=== PATIENT | male | born 1985 | race Caucasian/White ===

== ENCOUNTER 2021-11-03 10:21 | Emergency (ER) | payer OTHER, SELFPAY ==
[2021-11-03 10:23] VITALS: BP 123/79; PULSE 79; RESP 18; TEMP 36.8; O2SAT 99; BMI 20.9
--- NOTE | 2021-11-03 10:46 | ED_ITS ---
HPI - Back Pain/Injury General Chief Complaint: Back Pain/Injury Stated Complaint: check up/back pain Time Seen by Provider: 11/03/21 10:29 History of Present Illness HPI Narrative: Patient complains of low back pain after lifting at work, he did injure his back at work about 2 weeks ago was off for several days went back on light duty with no problem but then when he had to return to heavy lifting on his regular job the pain came back after lifting at work There is no numbness no weakness no tingling no radiation of pain no changes to bowel or bladder Related Data Previous Rx's Medication Instructions Recorded acetaminophen 500 mg tablet 1,000 mg PO QID PRN pain #30 tabs 11/03/21 ibuprofen 600 mg tablet 600 mg PO Q6H PRN pain #20 tabs 11/03/21 Allergies Allergy/AdvReac Type Severity Reaction Status Date / Time Penicillins [PENICILLINS] Allergy Intermediate HIVES Unverified 11/19/19 15:44 penicillin V Allergy Unknown rash Verified 12/04/16 00:00 Review of Systems Review of Systems: Positive for back pain negatives are no fever no chills no dizziness or weakness no headache no neck pain no chest pain no shortness of breath no abdominal pain no nausea or vomiting no changes to bowel or bladder no dysuria no frequency no incontinence, no skin rash, no muscle weakness or loss of sensation Yes all other systems are reviewed and are negative [facility] Past Medical History Source: nursing notes reviewed Social History Social History Advance Directives: No Physical Exam Vital Signs: Vital Signs: Last Vital Signs Temp 98.3 F 11/03/21 10:23 Pulse 79 11/03/21 10:23 Resp 18 11/03/21 10:23 BP 123/79 11/03/21 10:23 Pulse Ox 99 11/03/21 10:23 O2 Del Method 11/03/21 10:23 BMI result Body Mass Index 20.9 General appearance is comfortable no acute distress Head is normocephalic atraumatic Neck is supple Respiratory no distress The back had lower lumbar soft-tissue tenderness, no focal bony tenderness, skin was normal, pain reproduced with bending and movement, no CVA tenderness Extremities full range of motion x4 Neuro gait and balance are normal, motor is 5/5 x4, sensation intact and symmetrical Course Course Course Narrative: Patient with musculoskeletal back pain from lifting at work with no neurologic deficit no changes to bowel or bladder will follow with [facility] or what ever workman's comp provider his company wants Discharge Plan Discharge Clinical Impression: Strain of lumbar region Patient Disposition: Home, Self-Care Additional Instructions: Follow with [facility], or wherever your company send you for workman's Comp injuries for further evaluation Return any time for any worse condition or concerns Prescriptions: New acetaminophen 500 mg tablet 1,000 mg PO QID PRN (Reason: pain) Qty: 30 0RF ibuprofen 600 mg tablet 600 mg PO Q6H PRN (Reason: pain) Qty: 20 0RF Referrals: [facility] [Provider Group] (Back strain at work) Stand Alone Forms: Work/School Release
== END 2021-11-03 11:11 | disposition home or self-care (01) ==
PROVIDERS: Emergency Provider Emergency Medicine
DX: S39.012A Strain of muscle, fascia and tendon of lower back, initial encounter (principal); X50.0XXA Overexertion from strenuous movement or load, initial encounter; X50.3XXA Overexertion from repetitive movements, initial encounter; Y93.9 Activity, unspecified; Y92.9 Unspecified place or not applicable; Y99.0 Civilian activity done for income or pay; Z79.899 Other long term (current) drug therapy
CPT/HCPCS: 99283

== ENCOUNTER 2022-03-07 08:05 | Emergency (ER) | payer OTHER, SELFPAY ==
--- NOTE | ~2022-03-07 | CT_ITS ---
EXAMINATION: CT FACIAL BONES WITH CONTRAST CLINICAL INFORMATION: Trauma. Hit with baseball left jaw. COMPARISON: None TECHNIQUE: Multidetector CT imaging examination of the face is performed with intravenous administration of 85 mL Omnipaque 350. Axial images and multiplanar reformatted images are reviewed. This CT examination was performed using dose optimization techniques as appropriate, variously including the following: *Automated exposure control *Adjustment of mA and/or kV according to patient size (this includes techniques or standardized protocols for targeted exams where dose is matched to indication/reason for exam; i.e. extremities or head) *Use of iterative reconstruction technique DLP: 263 mGy-cm FINDINGS: The globes and orbital suarez, including lamina papyracea, are intact. The orbital apex, optic canals, and retrobulbar fat planes are normal. The maxilla, mandible and temporomandibular joints are intact. Nasal bones, pterygoid plates and zygomatic arches are normal. Mild mucosal thickening of maxillary sinuses (left more so than right). Otherwise, the paranasal sinuses are well-aerated and the ostiomeatal units are patent. No air-fluid levels in the paranasal sinuses. The skull base is normal. The mastoid air cells are well aerated. The visualized intracranial structures are normal. Parotid glands and submandibular glands are normal. There is subcutaneous tissue edema in the left perimandibular region and patchy hyperdensity in the soft tissue anterolateral to the body of left mandible has the appearance of an acute hematoma; this measures approximately 1.7 x 2[address]/CT facial bones w IV con IMPRESSION: * No evidence of maxillofacial bone injury. * Soft tissue hematoma anterolateral to the body of the left mandible.
[2022-03-07 08:10] VITALS: BP 131/67; PULSE 78; RESP 18; TEMP 36.9; O2SAT 99; BMI 20.3
--- NOTE | 2022-03-07 08:44 | ED_ITS ---
HPI - Trauma General Chief Complaint: Skin/Abscess/Foreign Body Stated Complaint: Dental Pain Time Seen by Provider: 03/07/22 08:28 Source: patient Mode of arrival: ambulatory Limitations: no limitations History of Present Illness HPI narrative: 36-year-old male who presents emergency department for evaluation facial trauma with swelling of his left lower mandible. 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 He states that he was pitching and standing behind and L screen . The ball was hit by a player and ball struck the bottom rales of the L screen up and struck him mandible. Patient states he developed immediate pain. States that he also either bit his left inner cheek the ball caused a laceration to his inner cheek. He had no loss consciousness. He states that initially the pain was getting better but now he has noticed increased swelling and increased pain. He is concerned that he may have an infection to his mouth/lower jaw or fracture of his mandible. He denied fever, chills fatigue or weakness. Related Data Previous Rx's Medication Instructions Recorded acetaminophen 500 mg tablet 1,000 mg PO QID PRN pain #30 tabs 11/03/21 ibuprofen 600 mg tablet 600 mg PO Q6H PRN pain #20 tabs 11/03/21 Allergies Allergy/AdvReac Type Severity Reaction Status Date / Time Penicillins [PENICILLINS] Allergy Intermediate HIVES Unverified 11/19/19 15:44 penicillin V Allergy Unknown rash Verified 12/04/16 00:00 Review of Systems Review of Systems: Yes all other systems are reviewed and are negative [facility] Past Medical History [facility] Narrative: Past medical history: None. Past surgical history: None. Social history: He denies tobacco, alcohol and drug use. Social History Social History Advance Directives: No Advance Directives Information Provided: No Physical Exam Vital Signs: Vital Signs: Last Vital Signs Temp 98.4 F 03/07/22 08:10 Pulse 78 03/07/22 08:10 Resp 18 03/07/22 08:10 BP 131/67 03/07/22 08:10 Pulse Ox 99 03/07/22 08:10 O2 Del Method 03/07/22 08:10 BMI result Body Mass Index 20.3 Vital signs reviewed Const: Other: Awake, alert, male patient, very pleasant cooperative does not appear to be in distress HEENT: Other: The patient's head is normal cephalic. Pupils were equal round reactive light, extraocular muscles intact with no double vision, there is no ecchymosis tenderness or swelling over the orbits or zygomatic arch. The patient's left lower mandible is ecchymotic, there is a tender palpable mass over the body/ mental aspect of his jaw. The patient a linear, healing laceration to the left buccal mucosa with no purulent drainage , the patient's teeth appear to be normal with no tenderness or soft tissue swelling of the gingiva Neck: Other: Neck is supple, no adenopathy Neuro: Other: Patient is awake, alert, oriented to person place, cranial nerves 2 through 12 are intact, strength is symmetric Medications Administered Discontinued Medications Generic Name Dose Route Start Last Admin Trade Name Freq PRN Reason Stop Dose Admin Iohexol 85 ml 03/07/22 10:04 03/07/22 10:04 Iohexol 350 Mg/Ml 100 Ml Infus..Btl IV 03/07/22 10:05 85 ml ONCE ONE Administration Medical Decision Making Medical Decision Making [facility] Narrative: 36-year-old male who presents emergency department for evaluation facial trauma that occurred 6 days prior pain. 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 The ball struck patient in the left mandible. The patient states that his pain was improving but now got worsened there is a small mass at the margin body and mental area of the mandible. Patient also has a linear laceration which is healing on the left buccal mucosa. I will obtain a laboratory evaluation CBC and CMP. I ordered a CT patient's face with IV contrast evaluate possible fracture versus infectious/abscess 1148: Laboratory evaluation revealed normal CBC and CMP which is reassuring. CT scan of the patient's face and mandible revealed no acute fractures. There was no evidence for an abscess or infectious process. Patient does have a hematoma which explains the palpable mass. I did discuss this with the patient. This time I do not patient has an infectious process and does require antibiotics. Patient was advised to take and pain and ice that area of hematoma. He was advised to watch for signs infection and return if he thinks the scalp infection or symptoms get worse. Differential Diagnosis Differential includes was not limited to mandible fracture, cellulitis, abscess, hematoma Lab Data [facility] Lab Attestation statement: I reviewed the patient's lab results. Please see the MDM Section laboratory interpretation Result Diagrams: 03/07/22 09:12 03/07/22 09:12 Labs: Lab Results 03/07/22 03/07/22 Range/Units 09:12 09:12 WBC 5.5 (4.8-10.8) X10*3/uL RBC 3.89 L (4.60-5.80) X10*6/uL Hgb 11.5 L (14.0-18.0) g/dl Hct 33.3 L (42.0-52.0) % MCV 85.6 (80.0-98.0) fL MCH 29.6 (27.0-33.0) pg MCHC 34.5 (31.0-36.0) g/dl RDW 11.8 (11.0-16.0) % Plt Count 182 (160-400) X10*3/uL MPV 9.0 L (9.4-12.4) fL Immature Gran % (Auto) 0.2 (0.0-0.4) % Neut % (Auto) 47.1 (45-73) % Lymph % (Auto) 35.0 (20-40) % Rains % (Auto) 11.4 H (2-11) % Eos % (Auto) 5.4 H (0-4) % Baso % (Auto) 0.9 (0-2) % Lymph # (Auto) 1.9 (1.2-4.9) X10*3/uL Rains # (Auto) 0.6 (0.1-1.2) X10*3/uL Eos # (Auto) 0.3 (0.0-0.4) X10*3/uL Baso # (Auto) 0.1 (0.0-0.2) X10*3/uL Abs Immat Gran (auto) 0.01 (0.00-0.03) X10*3/uL Absolute Neuts (auto) 2.6 (2.0-8.3) x10*3/uL Absolute Nucleated RBC 0.000 (0.0-0.012) X10*3/uL Nucleated RBC % (auto) 0.0 (0.0-0.2) /100WBC Sodium 140 (135-145) mmol/L Potassium 3.4 (3.3-5.1) mmol/L Chloride 107 (96-108) mmol/L Carbon Dioxide 29 (22-29) mmol/L Anion Gap 7 L (12-20) BUN 11 (9-16) mg/dL Creatinine 0.78 (0.5-1.4) mg/dL Estim Creat Clear Calc 128.4 Estimated GFR > 60 Random Glucose 83 (60-115) mg/dL Calcium 9.0 (8.4-10.2) mg/dL Total Bilirubin 0.5 (0.0-1.0) mg/dL AST 17 (5-37) U/L ALT 7 (0-40) U/L Alkaline Phosphatase 97 (39-117) U/L Total Protein 6.3 L (6.5-8.0) g/dL Albumin 4.0 (3.5-5.0) g/dL Independent Interpretation I performed an independent interpretation of an: CT Scan (Face and mandible) Interpretation: Being dependent irritation of the patient's CT face and mandible revealed no acute fracture, hematoma with no evidence inflammatory changes and I agree with the radiologist's interpretation Radiology Impression Discussion of test interpretation with radiology: I have reviewed the radiologist's reading. Radiologist Impression: IMPRESSION: * No evidence of maxillofacial bone injury. * Soft tissue hematoma anterolateral to the body of the left mandible. Dictated By:Singh Mantillaigned By:<Electronically signed by Singh Mantilla MD in [place]>03/07/22 1142 Prescription Management I considered prescription management with: Antibiotic Discharge Plan Discharge Clinical Impression: Hematoma Blunt trauma of face Qualifiers: Encounter type: initial encounter Qualified Code(s): S09.93XA - Unspecified injury of face, initial encounter Patient Disposition: Home, Self-Care Instructions: Bone Bruise (ED), Hematoma (ED) Additional Instructions: Your blood work was normal which is reassuring. The CT scan of your face and mandible revealed no broken bones. You do have a hematoma (collection of blood in the muscle) of your jaw and this explains the lump that you noted. At this time I do not think that you have an infection of your teeth, gums or jaw and you do not need any antibiotics. If you developed fever, chills, fatigue, weakness, redness, increased swelling increased pain in your jaw or cheek then [facility] Follow-up with your doctor in 2 days. Please return to the emergency department if your symptoms get worse or if you develop any symptoms that are concerning to you. Prescriptions: No Action acetaminophen 500 mg tablet 1,000 mg PO QID PRN (Reason: pain) Qty: 30 0RF ibuprofen 600 mg tablet 600 mg PO Q6H PRN (Reason: pain) Qty: 20 0RF
[2022-03-07 09:15] LABS: MANUAL DIFF FLAG NO
[2022-03-07 09:18] LABS: Basophils Absolute Auto 0.1 X10*3/uL (0.0-0.2); Basophils Percent Auto 0.9 % (0-2); Eosinophils Absolute Auto 0.3 X10*3/uL (0.0-0.4); Eosinophils Percent Auto 5.4 % (0-4); Hematocrit 33.3 % (42.0-52.0); Hemoglobin 11.5 g/dl (14.0-18.0); Imm Gran Abs Auto 0.01 X10*3/uL (0.00-0.03); Imm Gran Pct Auto 0.2 % (0.0-0.4); Lymphocytes Absolute Auto 1.9 X10*3/uL (1.2-4.9); Mean Corpuscular HGB Conc 34.5 g/dl (31.0-36.0); Mean Corpuscular Hemoglobin 29.6 pg (27.0-33.0); Mean Corpuscular Volume 85.6 fL (80.0-98.0); Monocytes Absolute Auto 0.6 X10*3/uL (0.1-1.2); Monocytes Percent Auto 11.4 % (2-11); Neutrophils Absolute Auto 2.6 x10*3/uL (2.0-8.3); Neutrophils Percent Auto 47.1 % (45-73); Platelet Count 182 X10*3/uL (160-400); Red Blood Count 3.89 X10*6/uL (4.60-5.80); Red Cell Distribution Width 11.8 % (11.0-16.0); White Blood Count 5.5 X10*3/uL (4.8-10.8)
[2022-03-07 09:36] LABS: Alanine Aminotransferase 7 U/L (0-40); Alkaline Phosphatase 97 U/L (39-117); Anion Gap 7 (12-20); Aspartate Amino Transferase 17 U/L (5-37); Bilirubin Total 0.5 mg/dL (0.0-1.0); Blood Urea Nitrogen 11 mg/dL (9-16); Carbon Dioxide 29 mmol/L (22-29); Chloride 107 mmol/L (96-108); Creatinine Clr Calc Pharmacy 128.4; Estimated Glomerular Filt Rate > 60; Glucose Random 83 mg/dL (60-115); Potassium 3.4 mmol/L (3.3-5.1); Sodium 140 mmol/L (135-145); Total Protein 6.3 g/dL (6.5-8.0)
[2022-03-07] MEDS: iohexoL 350 MG/ML 100 ML INFUS..BTL 85 ML IV (10:04)
== END 2022-03-07 12:53 | disposition home or self-care (01) ==
PROVIDERS: Emergency Provider Emergency Medicine Emergency Medical Services
DX: S09.93XA Unspecified injury of face, initial encounter (principal); S01.512A Laceration without foreign body of oral cavity, initial encounter; W21.03XA Struck by baseball, initial encounter; Y93.67 Activity, basketball; Y92.320 Baseball field as the place of occurrence of the external cause; Y99.8 Other external cause status
CPT/HCPCS: 36415; 70487; 80053; 85025; 99282; 99284; Q9967

== ENCOUNTER 2023-05-24 09:19 | Emergency (ER) | payer OTHER, SELFPAY ==
--- NOTE | ~2023-05-24 | XR_ITS ---
EXAMINATION: XR FINGER, LEFT CLINICAL INFORMATION: Pain status post laceration. COMPARISON: None available. TECHNIQUE: Three views of the left index finger. FINDINGS: Examination demonstrates amputation of the distal/dorsal/lateral (radial) aspect of the soft tissues and tuft of the left second distal phalanx. The distal end of the second distal phalanx may be exposed, although evaluation is somewhat limited due to overlying bandage. No obvious subcutaneous air is seen, although evaluation for subcutaneous air is similarly limited. The bones and soft tissues otherwise appear unremarkable. No other fracture identified. Alignment is anatomic. Joint spaces appear maintained. XR/XR finger LT min 2V IMPRESSION: Findings as above.
[2023-05-24 09:41] VITALS: BP 109/66; PULSE 64; RESP 18; TEMP 36.6; O2SAT 100; BMI 20.8
--- NOTE | 2023-05-24 11:00 | PC.NURSE ---
pt is alert and oriented, skin pwd, respirations even and unlabored, pt reports being at work and cutting metal with a saw, and the saw got stuck on the object and ended going through his left second finger, the external lateral side of the finger is missing and visible arterial bleeding, having a difficult part controlling the bleeding at this time, dr romeo at bedside putting in sutures to control the bleeding. pt tolerating the procedure well
[2023-05-24] MEDS: Acetaminophen 325 MG TABLET 975 MG PO (11:40)
[2023-05-24 11:42] VITALS: BP 113/78; PULSE 60; RESP 18
[2023-05-24] MEDS: Tranexamic Acid 1,000 MG/10 ML VIAL 500 MG INTRANASAL (11:42)
[2023-05-24] MEDS: Lidocaine HCl 1 % MPF 5 ML VIAL INFILTRATI (11:42)
--- NOTE | 2023-05-24 12:29 | ED.EXTPRO ---
HPI - Extremity Problem General Chief complaint: Extremity Injury, Upper Stated complaint: Finger Lac Work Injury 05/24/23 Time Seen by Provider: 05/24/23 10:08 Source: patient and RN notes reviewed Mode of arrival: ambulatory Limitations: no limitations History of Present Illness HPI Narrative: This is a 37-year-old male presenting to the emergency department with complaints of left 2nd finger pain status post laceration which occurred at work today. Patient states that while he was using a band saw he accidentally lacerated the tip of his left 2nd finger off. He states that he apply direct pressure and was able to get the bleeding to stop. He reports that the pain is manageable at this time. He has not on blood thinners. No medical problems. He does report that he is currently on Suboxone. He denies any recent missed dosages. No complaints or concerns at this time MD Complaint: extremity pain Onset (ago): hour(s) Pain Consistency: constant Location: left and upper extremity Severity scale (1-10): 10 Radiation: none Relieving factors: nothing Exacerbating factors: nothing Associated symptoms: denies other symptoms Related Data Previous Rx's Medication Instructions Recorded acetaminophen 500 mg tablet 1,000 mg (2 x 500 mg) PO QID PRN 11/03/21 pain #30 tabs ibuprofen 600 mg tablet 600 mg PO Q6H PRN pain #20 tabs 11/03/21 acetaminophen 500 mg tablet 1,000 mg (2 x 500 mg) PO Q6H PRN 05/24/23 (Tylenol Extra Strength) pain #30 tabs cephalexin 250 mg capsule 250 mg PO QID 7 days #28 caps 05/24/23 doxycycline hyclate 100 mg tablet 100 mg PO BID 7 days #13 tabs 05/24/23 ibuprofen 600 mg tablet 600 mg PO Q6H PRN pain #30 tabs 05/24/23 oxycodone 5 mg tablet 5 - 10 mg (1 - 2 x 5 mg) PO Q4H 3 05/24/23 days #10 tabs buprenorphine 64 mg/0.18 mL 64 mg (0.18 mL) subcut Q28D #0.18 05/27/23 solution,exten.rel.subcutaneous mL syringe buprenorphine 4 mg-naloxone 1 mg 1 film buccal BID #30 ea 05/29/23 sublingual film ibuprofen 600 mg tablet 600 mg PO Q6-8H PRN pain #40 tabs 05/30/23 Allergies Allergy/AdvReac Type Severity Reaction Status Date / Time Penicillins [PENICILLINS] Allergy Intermediate HIVES Verified 05/29/23 14:02 penicillin V Allergy Unknown rash Verified 05/29/23 14:02 Review of Systems Review of Systems: Yes all other systems are reviewed and are negative Constitutional: Constitutional: Reports as per [facility] Social History Social History (Updated 05/29/23 @ 14:04 by Omega Andrea) Alcohol intake: never Patient Tobacco Use Status: Never used Tobacco Use of substances other than those prescribed or required for medical reasons: Yes Substance Use Type Other:: suboxone. 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 Physical Exam Vital Signs: Vital Signs: Last Vital Signs Temp 98.3 F 05/24/23 15:04 Pulse 61 05/24/23 15:04 Resp 15 05/24/23 15:04 BP 108/65 05/24/23 15:04 Pulse Ox 99 05/24/23 15:04 O2 Del Method Room Air 05/24/23 15:04 BMI result Body Mass Index 20.8 Const: General: cooperative, comfortable and no acute distress Orientation/consciousness: patient oriented x3 Limitations: no limitations HEENT: Head: Yes normal to inspection, Yes normocephalic and Yes atraumatic Ears: hearing grossly normal bilaterally General nose exam: Normal external nose present Face and sinus: Yes normal facial exam Mouth: Normal oral and palatal mucosa present, oropharynx normal and moist mucous membranes Throat: Yes posterior oropharynx normal Eyes: General: appearance normal, both eyes and all related structures Eyelids: Yes eyelids normal Conjunctivae: conjunctivae normal Sclerae: sclerae normal Pupils: Equal, round and reactive pupils present EOM: EOMs intact bilaterally Neck: Neck: Yes normal visual inspection, Yes full ROM and Yes no lymphadenopathy Lymphatic: no lymphadenopathy noted Chest: Chest palpation & inspection: normal inspection of the chest Resp: Effort & Inspection: normal respiratory effort and able to speak in complete sentences Auscultation: clear to auscultation bilaterally, no crackles, no rales, no rhonchi and no wheezes Cardio: Rate: regular rate Rhythm: regular rhythm Heart sounds: S1 normal heart sound present and S2 normal heart sound present GI: Inspection: Yes normal to inspection Skin: General skin exam: no rashes or lesions noted Trauma: no lacerations or abrasions Wounds: no wounds Neuro: General: patient oriented x3 and moves all extremities Cranial nerves: Yes Equal, round and reactive pupils present Extrem: Other: Left 2nd digit: DIP with Dorsal tissue exposure active bleeding +arteriole bleeding. able to palpate the distal tip of digit. General: Yes normal to inspection Right upper extremity: normal to inspection Left upper extremity: normal to inspection Right lower extremity: normal to inspection Left lower extremity: normal to inspection Medications Administered Discontinued Medications Generic Name Dose Route Start Last Admin Trade Name Freq PRN Reason Stop Dose Admin Acetaminophen 975 mg 05/24/23 11:29 05/24/23 11:40 Acetaminophen 325 Mg Tablet PO 05/24/23 11:30 975 mg ONCE ONE Administration Cephalexin HCl 250 mg 05/24/23 13:38 05/24/23 14:04 Cephalexin 250 Mg Capsule PO 05/24/23 13:39 250 mg ONCE ONE Administration Doxycycline Monohydrate 100 mg 05/24/23 13:38 05/24/23 14:04 Doxycycline Monohydrate 100 Mg Capsule PO 05/24/23 13:39 100 mg ONCE ONE Administration Ibuprofen 600 mg 05/24/23 13:18 05/24/23 13:25 Ibuprofen 600 Mg Tablet PO 05/24/23 13:19 600 mg ONCE ONE Administration Lidocaine HCl 5 ml 05/24/23 10:57 05/24/23 11:42 Lidocaine Hcl 1 % Mpf 5 Ml Vial INFILTRATI 05/24/23 10:58 5 ml ONCE ONE Administration Oxycodone HCl 10 mg 05/24/23 13:16 05/24/23 13:24 Oxycodone Hcl Immed Release 5 Mg Tablet PO 05/24/23 13:17 10 mg ONCE ONE Administration Tranexamic Acid 500 mg 05/24/23 10:47 05/24/23 11:42 Tranexamic Acid 1,000 Mg/10 Ml Vial INTRANASAL 05/24/23 10:48 500 mg ONCE ONE Administration Medical Decision Making Medical Decision Making MDM Narrative: This is a 37-year-old male presenting to the emergency department with complaints of laceration to left 2nd digit. On arrival, there is notable absent tissue to the distal end his 2nd finger. Positive arterial bleeding. Patient was seen and evaluated by my attending physician, Dr. Gomez, who cleansed the wound and tied 3 sutures to arterial bleeds. See procedure note for further detail. Hemastasis was achieved using surgicel and TXA. Wound wrapped using gauze. Pt advised to call orthopedic office today for follow up. Discharged on ABX, given strict return precautions. Stable for D/C. Of note, pt has been on suboxone, which he was previously prescribed went onto Sublocade, was doing well however started to have withdrawal symptoms and was started back on suboxone he purchased from the street. He has had no illicit drug use and has not relapsed. He has been taking suboxone every day for several months now, last dose this morning. I discussed this with Yanni Aragon from the recovery team as given presentation he will be in pain for some time and will likely need something stronger for pain for the next several days. Pt wishes to be enrolled into recovery services again. Yanni saw patient at bedside. Discussed risks vs benefits of starting narcotic pain medications for the next several days. Pt centered care discussion performed and pt will be seen by recovery services on saturday. Pt agrees with this plan. Educated on if patient continues taking suboxone with oxycodone he will not go into precipitated withdrawal. Differential Diagnosis Differential Diagnoses: The differential diagnosis associated with the presentation includes laceration, amputation, contusion, abrasion Admission/Observation Consideration of admission/observation: Escalation of care including admission/observation considered Consult Healthcare Provider Management of the patient was discussed with: Behavioral Health Case Manager MIRI Hernandez, recovery team services Radiology Impression Discussion of test interpretation with radiology: I have reviewed the radiologist's reading. Radiologist Impression: Attending Dr: Ordering Physician: Ryanne Liu Date of Service: 05/24/23 Procedure(s): XR finger LT min 2V Accession Number(s): [id number] cc: Ryanne Liu; Physician,Unknown ~ EXAMINATION: XR FINGER, LEFT CLINICAL INFORMATION: Pain status post laceration. COMPARISON: None available. TECHNIQUE: Three views of the left index finger. FINDINGS: Examination demonstrates amputation of the distal/dorsal/lateral (radial) aspect of the soft tissues and tuft of the left second distal phalanx. The distal end of the second distal phalanx may be exposed, although evaluation is somewhat limited due to overlying bandage. No obvious subcutaneous air is seen, although evaluation for subcutaneous air is similarly limited. The bones and soft tissues otherwise appear unremarkable. No other fracture identified. Alignment is anatomic. Joint spaces appear maintained. XR/XR finger LT min 2V IMPRESSION: Findings as above. Dictated By: Jose Luis Luis External Record Review External record reviewed: Inpatient record, Office record, Outpatient record, Prior outpatient labs, Prior outpatient radiology, Primary care record and Outside ED record Procedures Procedure Narrative Procedure Narrative: Wound cleansed using Betadine. Finger tourniquet applied. Digital block performed using 4 cc of lidocaine without epinephrine. Dr. Gomez tied off arterial bleeds noted to the distal tip using 4-0 nylon sutures. Hemostat and TXA applied to with pressure. Hemostasis achieved. Patient tolerated procedure well Nerve Block Nerve Block 1: Time out performed: Yes Local Anesthetic: lidocaine 1% Amount of anesthesia used (mL): 4 Side: left Nerve Blocks: digital Procedure Successful: Yes Patient Tolerated Procedure: well and no complications Critical Care Time Critical Care Time Critical Care Time: Yes Total Critical Care Time: 40 Attestation: I have personally provided critical care time exclusive of time spent on separately billable procedures. Time includes review of lab data, radiology results, discussion with consultants, and monitoring for potential decompensation. Intervention performed as documented. Discharge Plan Discharge Clinical Impression: Finger amputation, traumatic, Finger laceration Patient Disposition: Home, Self-Care Instructions: Laceration (ED), Finger Amputation (ED) Additional Instructions: You were seen in the emergency department due to lacerating your finger. You accidentally cut the tip of your finger off which included some bone. You need to follow-up with Orthopedics. Call today to make an appointment. Keep wound clean and dry. Take prescribed antibiotics as directed. Finish the entire course. We updated your tetanus in the department today. Continue taking your Suboxone. I am also prescribing you ibuprofen and Tylenol which you can alternate between the 2. I am also giving your stronger pain medication, oxycodone, please take this for severe pain only. It is very important that you continue the Suboxone dosage. Do not miss any dosages. [facility] on Saturday, May 26, at 9:00 a.m. If any new or worsening symptoms occur including but not limited to chest pain, shortness of breath, fevers, chills, drainage, please return for re-evaluation. Prescriptions: New acetaminophen [Tylenol Extra Strength] 500 mg tablet 1,000 mg PO Q6H PRN (Reason: pain) Qty: 30 0RF Rx Instructions: Do not exceed greater than 4 g in a 24 hour. ibuprofen 600 mg tablet 600 mg PO Q6H PRN (Reason: pain) Qty: 30 0RF oxycodone 5 mg tablet 5 - 10 mg PO Q4H 3 Days Qty: 10 0RF Rx Instructions: Partial Fill upon patient request. doxycycline hyclate 100 mg tablet 100 mg PO BID 7 Days Qty: 13 0RF cephalexin 250 mg capsule 250 mg PO QID 7 Days Qty: 28 0RF No Action acetaminophen 500 mg tablet 1,000 mg PO QID PRN (Reason: pain) Qty: 30 0RF ibuprofen 600 mg tablet 600 mg PO Q6H PRN (Reason: pain) Qty: 20 0RF ibuprofen 600 mg tablet 600 mg PO Q6-8H PRN (Reason: pain) Qty: 40 0RF buprenorphine 64 mg/0.18 mL solution, extended rel syringe 64 mg subcut Q28D Qty: 0.18 5RF buprenorphine-naloxone 4-1 mg film 1 film buccal BID Qty: 30 0RF Rx Instructions: place 1 strip/tab under (each) side of tongue Referrals: [facility] [place] [facility] [Provider Group] Blanca Ayala CNP [Nurse Practitioner] - Stand Alone Forms: Work/School Release Interventions: ED Discharge Assessment Last Done: 05/24/23 15:04 Discharge Date/Time: 05/24/23 15:05
[2023-05-24] MEDS: oxyCODONE HCl Immed Release 5 MG TABLET 10 MG PO (13:24)
[2023-05-24] MEDS: Ibuprofen 600 MG TABLET PO (13:25)
[2023-05-24] MEDS: cephALEXin 250 MG CAPSULE PO (14:04)
[2023-05-24] MEDS: Doxycycline Monohydrate 100 MG CAPSULE PO (14:04)
[2023-05-24 14:17] VITALS: BP 108/65; PULSE 61; RESP 15; TEMP 36.8; O2SAT 99
--- NOTE | 2023-05-24 14:20 | MHC.RECOVRN ---
Met with pt in [facility] to discuss Suboxone continuation. Pt reports he had been on Suboxone in the past x 8 years, transitioned to Sublocade, received 4 injections and then discontinued the medication a few years ago. Pt has been purchasing illicit Suboxone x 1 year, taking 4 mg BID. Pt reports desire to connect to outpatient provider with goal of Sublocade. Discussed [facility], pt agreeable to intake appt. Pt denies other questions or concerns for t/w. Appt made for Saturday05/27/23 9:30AM.
[2023-05-24 15:04] VITALS: BP 108/65; PULSE 61; RESP 15; TEMP 36.8; O2SAT 99
== END 2023-05-24 15:05 | disposition home or self-care (01) ==
PROVIDERS: Emergency Provider Emergency Medicine
DX: S68.121A Partial traumatic metacarpophalangeal amputation of left index finger, initial encounter (principal); F11.20 Opioid dependence, uncomplicated; W31.2XXA Contact with powered woodworking and forming machines, initial encounter; Y93.9 Activity, unspecified; Y92.9 Unspecified place or not applicable; Y99.9 Unspecified external cause status
CPT/HCPCS: 35207; 73140; 99284

== ENCOUNTER 2023-05-27 09:27 | Outpatient (AMB) | payer SELFPAY ==
--- NOTE | 2023-05-27 09:29 | MHC.AM.SUB ---
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 Required: No Allergies Penicillins [PENICILLINS] Allergy (Intermediate, Unverified 05/27/23 09:38) HIVES penicillin V Allergy (Unknown, Verified 05/27/23 09:38) rash Do you need a note to return to daycare/school/sports/work: No HPI MAT HPI Details Patient presents today as an intake to establish care Was referred by [facility] after recent ED visit Pt presented to the ED to have a sigificant laceration he sustained with a chainsaw treated, he reports he needs to follow up with ortho and believes they may amputate up to his first knuckle Has no PCP, last visit was 10+ years ago Works full-time Lives at home with and 4 children (ages 16, 14, 10 & 9)stably housed Identifies his as a good support Has stable transportation 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 He was stable on suboxone for 8 years with Mya. He received a few sublocade injections and then did not return and was able to maintain sobriety for 2-3 years. He reports when he had Covid in 2020 he experienced withdrawal symptoms and began to purchase suboxone films from the streets He has been taking 4mg BID and has been tolerating that dose well with no concern for side effects or breakthrough withdrawals Has previously tried cocaine (years ago, use was not regular) 20 pack year history, reports quit smoking in 2020 He has no current providers- not interested in referrals at this time hx of PTSD No psych hospitalizations No self harming thoughts or behaviors past or present Alg- PCN (Hives) No legal history/pending court cases/DCF involvement Review of Systems Const Reports as per HPI Physical Exam Vital Signs: Last Vital Signs Pulse 70 05/27/23 09:37 BP 122/78 05/27/23 09:37 Pulse Ox 98 05/27/23 09:37 Oxygen Delivery Method Room Air 05/27/23 09:37 Const General: cooperative and no acute distress Resp Effort & Inspection: normal respiratory effort Psych Appearance: grossly normal Mental Status: mental status grossly normal Speech and movement: Normal speech and movement present Affect: normal affect Attitude: cooperative Results AMB 14 Panel Urine Drug Screen Urine Marijuana (THC) Negative Last Edit by Shellie Mcginnis CMA on 05/27/23 09:41 Urine Cocaine Negative Last Edit by Shellie Mcginnis CMA on 05/27/23 09:41 Urine Morphine Negative Last Edit by Shellie Mcginnis CMA on 05/27/23 09:41 Urine Methamphetamine Negative Last Edit by Shellie Mcginnis CMA on 05/27/23 09:41 Urine Amphetamine Negative Last Edit by Shellie Mcginnis CMA on 05/27/23 09:41 Urine Benzodiazepine Negative Last Edit by Shellie Mcginnis CMA on 05/27/23 09:41 Urine Barbiturates Negative Last Edit by Shellie Mcginnis CMA on 05/27/23 09:41 Urine Methadone Negative Last Edit by Shellie Mcginnis CMA on 05/27/23 09:41 Urine Buprenorphine Positive Last Edit by Shellie Mcginnis CMA on 05/27/23 09:41 Urine Tricyclic Antidepressant Negative Last Edit by Shellie Mcginnis CMA on 05/27/23 09:41 Urine MDMA Negative Last Edit by Shellie Mcginnis CMA on 05/27/23 09:41 Urine Oxycodone Positive Last Edit by Shellie Mcginnis CMA on 05/27/23 09:41 Urine Phencyclidine Negative Last Edit by Shellie Mcginnis CMA on 05/27/23 09:41 Urine Propoxyphene Negative Last Edit by Shellie Mcginnis CMA on 05/27/23 09:41 Results Reviewed Results Reviewed: Laboratory Last Values POC Urine Buprenorphine Positive 05/27/23 09:38 POC Urine Morphine Negative 05/27/23 09:38 POC Urine Oxycodone Positive 05/27/23 09:38 POC Urine Methadone Negative 05/27/23 09:38 POC Urine Propoxyphene Negative 05/27/23 09:38 POC Urine Barbiturates Negative 05/27/23 09:38 POC U Tricyclic Antidpr Negative 05/27/23 09:38 POC Urine PCP Negative 05/27/23 09:38 POC Ur Amphetamines Negative 05/27/23 09:38 POC Ur Methamphetamine Negative 05/27/23 09:38 POC Urine MDMA Negative 05/27/23 09:38 POC Ur Benzodiazepine Negative 05/27/23 09:38 POC Urine Cocaine Negative 05/27/23 09:38 POC Ur Marijuana (THC) Negative 05/27/23 09:38 Assessment & Plan Assessment & Plan (1) Encounter to establish care: Code(s): Z76.89 - Persons encountering health services in other specified circumstances Plan: -Basic labwork ordered, reviewed with patient to fast prior to having labwork done (2) Opioid use disorder: Code(s): F11.90 - Opioid use, unspecified, uncomplicated Plan: -Start suboxone 4mg BID -Brixadi order placed, patient has previously trialed Sublocade and identifies pain with injection as a barrier -Follow up 2 weeks Orders: Orders Lipid Panel 05/27/23 Z76.89 - Persons encountering health services in other specified circumstances Complete Blood Count Auto Diff 05/27/23 Z76.89 - Persons encountering health services in other specified circumstances Comprehensive Met. Panel 05/27/23 Z76.89 - Persons encountering health services in other specified circumstances AMB 14 Panel Urine Drug Screen 05/27/23 Z51.81 - Encounter for therapeutic drug level monitoring Medications: New buprenorphine-naloxone 4-[address] 1 strip/tab under (each) side of tongue 1 film buccal BID 30 ea 0RF buprenorphine ER 64 mg (0.18 mL) subcut Q28D 0.18 mL 5RF Coding Level of Care Code New Pt Level 4 (15967) Diagnoses Encounter to establish care Z76.89 Opioid use disorder F11.90
[2023-05-27 09:37] VITALS: BP 122/78; PULSE 70; O2SAT 98
== END 2023-05-27 10:00 | disposition home or self-care (01) ==
PROVIDERS: Visit Provider Nurse Practitioner Family
DX: F11.90 Opioid use, unspecified, uncomplicated (principal); Z76.89 Persons encountering health services in other specified circumstances
CPT/HCPCS: 99204

== ENCOUNTER → 2023-05-27 09:27 | Outpatient (BNVA) | payer OTHER, SELFPAY | PROVIDERS: Visit Provider Nurse Practitioner Family | DX: Z76.89 Persons encountering health services in other specified circumstances (principal); F11.20 Opioid dependence, uncomplicated | CPT/HCPCS: 80305; 99202 ==

== ENCOUNTER 2023-05-29 13:55 | Outpatient (AMB) | payer SELFPAY ==
--- NOTE | 2023-05-29 13:57 | A.OFFVIS_ITS ---
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 Patient states while he was using a band saw he accidentally lacerated the tip of his left 2nd finger off. He does report that he is currently on Suboxone. Currently is having a pulling sensation on his finger which is causing him a lot of pain. 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 He currently states he has chronic pain and a pulling sensation on his finger. He reports he is currently taking Suboxone. [facility] Social History (Updated 05/29/23 @ 14:04 by Omega Andrea) Alcohol intake: never Patient Tobacco Use Status: Never used Tobacco Use of substances other than those prescribed or required for medical reasons: Yes Substance Use Type Other:: suboxone. 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 There is good color, sensation and temperature throughout the digit. He is able to activate his PIP which is limited due to discomfort. Assessment & Plan Assessment & Plan (1) Finger amputation, traumatic: Code(s): S68.119A - Complete traumatic metacarpophalangeal amputation of unspecified finger, initial encounter (2) Finger laceration: Code(s): S61.219A - Laceration without foreign body of unspecified finger without damage to nail, initial encounter Plan Case was discussed with Dr. Flynn in the office today. Based off the x-ray findings and images from the ED, he does have significant skin and bone loss at the distal aspect of the finger. I did explain that he would bene from a surgical intervention for a more optimal recovery. We discussed risks, benefits, and alternatives, risks including but not limited to infection, poor skin or bone healing, need for further surgery, and nerve and tissues damage. He is content with this plan and would like to move forward with revision amputation of the left index finger with Dr. Flynn. He will be booked accordingly. Patient Instructions: Scribed for Tenzin Forrester PA-C, by Srinivasan Denise medical insurance coding specialist, on 05/29/2023 at 2:00 PM EST. I, Tenzin Forrester PA-C, have personally reviewed and agree with the information entered by the scribe. Coding Level of Care Code New Pt Level 4 (88245) Diagnoses Finger amputation, traumatic S68.119A Finger laceration S61.219A
== END 2023-05-29 15:10 | disposition home or self-care (01) ==
PROVIDERS: Visit Provider Physician Assistant
DX: S61.219A Laceration without foreign body of unspecified finger without damage to nail, initial encounter (principal); W31.2XXA Contact with powered woodworking and forming machines, initial encounter
CPT/HCPCS: 99204

== ENCOUNTER → 2023-05-29 13:55 | Outpatient (BNVA) | payer OTHER, SELFPAY | PROVIDERS: Visit Provider Physician Assistant | DX: S68.111A Complete traumatic metacarpophalangeal amputation of left index finger, initial encounter (principal); W31.2XXA Contact with powered woodworking and forming machines, initial encounter; Y93.H3 Activity, building and construction; Y92.9 Unspecified place or not applicable; Y99.9 Unspecified external cause status; Z79.899 Other long term (current) drug therapy | CPT/HCPCS: 99202 ==

== ENCOUNTER 2023-05-30 07:18 | Day surgery (SDC) | payer OTHER, SELFPAY ==
[2023-05-30] VITALS (7 sets, daily range): BP systolic 103–133; BP diastolic 57–81; PULSE 56–84; RESP 16–18; TEMP 36.7–37.2; O2SAT 95–99; BMI 19.8
--- NOTE | 2023-05-30 07:44 | HO.ANESPROP2 ---
HPI - Anesthesia Eval Consult details Narrative: revision amput left index finger PMFSH Active Problems Active Problems: All Active Problems (Updated 05/30/23 @ 05:31 by Luis Armando Davis) Opioid use disorder (Acute) Encounter to establish care (Acute) Family History Family history of problems with anesthesia: No Surgical History History of Problems with Anesthesia: No Social History Social History (Updated 05/29/23 @ 14:04 by Omega Andrea) Alcohol intake: never Patient Tobacco Use Status: Never used Tobacco Use of substances other than those prescribed or required for medical reasons: Yes Substance Use Type Other:: suboxone. 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 Meds Allergies Allergy/AdvReac Type Severity Reaction Status Date / Time Penicillins [PENICILLINS] Allergy Intermediate HIVES Verified 05/29/23 14:02 penicillin V Allergy Unknown rash Verified 05/29/23 14:02 Exam Height,Weight and Vital Signs: Height 5 ft 11 in Weight 64.41 kg Last Vital Signs Temp 98.9 F 05/30/23 07:31 Pulse 76 05/30/23 07:31 Resp 18 05/30/23 07:31 BP 133/81 05/30/23 07:31 Pulse Ox 99 05/30/23 07:31 O2 Del Method Room Air 05/30/23 07:31 Airway Mallampati Class: I TM Dist: >3cm Neck ROM: Full Other: protruding upper front teeth Assessment and Plan Assessment Anesthesia Assessment: Anesthesia Plan Discussed and Chart Reviewed Final Anesthetic Review Family History of Problems with Anesthesia: No History of Problems with Anesthesia: No NPO: Yes ASA Class: I Final Preanesthetic Review: No Changes in Pt Med Stat, Meds/Allgs Chart Reviewed, Consent Obtained/Reviewed and Anes Risks/Benef Reviewed Patient Risk: Low Procedure Risk: Low Anesthetic Plan Anesthetic Plan: GA, MAC: and Agree w/ Assess. and Plan Disposition: Standard PACU
--- NOTE | 2023-05-30 07:57 | MHC.SHP ---
Pre-Procedural Eval Section A - 24 Hr Update-Section A only Date of Service: 05/30/23 The patient is an INPATIENT: No Changes since office visit: No Cold of Flu in the past 2 weeks, No New Medical Problems, No Changes in Medication and No Patient answered all questions The patient has been examined within 24 hours of the surgical procedure. The History & Physical has been completed within 30 days and I have reviewed it.: Yes Section B - Complete if H&P > 30 days Chief Complaint: Complete traumatic transphalangeal amputation Details of Present Illness: Index fingertip amputation Allergies: Allergies Allergy/AdvReac Type Severity Reaction Status Date / Time Penicillins [PENICILLINS] Allergy Intermediate HIVES Verified 05/29/23 14:02 penicillin V Allergy Unknown rash Verified 05/29/23 14:02 Plan I have reviewed the history and physical and performed a pertinent physical examination on my patient. No changes have occurred unless specified. Time Spent With Patient Time: Total time managing care of this patient today ____ minutes.
--- NOTE | 2023-05-30 07:58 | W.PM.OPN ---
Operative Note Operative Note Date of Service: 05/30/23 Narrative: Operative Note Narrative: Preop diagnosis: 1. Left index finger distal phalanx level Amputation 2. Left index finger nail bed injury Postop diagnosis: Same Procedure: 1. Left index finger Revision amputation 2. Left index finger I and D of open distal phalanx fracture 3. Left index finger Excision of germinal and sterile nail matrices Surgeon: Rajni Flynn MD Anesthesia: General Anesthesia Findings: The table saw injury extended from the ulnar tip of the digit obliquely across the nail bed to the proximal radial hyponychial area leaving insufficient bone and nail bed to support a nail without having a hook nail and other problems. Implants: None Tourniquet time: 0 minutes EBL: 5.0 ml Specimen: Bone fragment from distal phalanx Drains: None Complications: None Disposition: Brought to the recovery room in stable condition Plan: He was given a tetanus booster in recovery, as it appears this was intended when he was seen at his ED visit. Follow-up next week for wound check Anticipate suture removal in 3 weeks Continue antibiotics until finished Indications: The patient is 38 years old with left index fingertip amputation from a miter saw . The risks and benefits of operative treatment, including but not limited to risk of damage to blood vessels, nerves, tendons, infection, recurrence, persistent pain or numbness, incomplete resolution of preoperative symptoms, or need for further surgery were discussed with the patient and they wished to proceed with surgery. Procedure: Once consent was obtained patient was brought back to the operating suite and placed in the operating table in a supine position. . Perioperative antibiotics and anesthesia was administered by the anesthesia team. A tourniquet was applied to the proximal aspect of the left upper extremity and the limb was prepped and draped in a standard surgical fashion. The limb was elevated exsanguinated with Esmarch bandage and the tourniquet inflated to 250 mm of mercury for a total tourniquet time of 0 minutes. The left index finger amputation site was debrided of nonviable tissue. The table saw injury extended from the ulnar tip of the digit obliquely across the nail bed to the proximal radial hyponychial area leaving insufficient bone and nail bed to support a nail without having a hook nail and other problems. Our attention was turned to the nail bed.? ?Because of the severity of this injury it was felt that the nail apparatus to would be best removed.? The sterile and germinal matrices were carefully excised using a 15. Blade and then a rongeur.? ? The skin edges at the paronychial fold and soft tissue injury were freshened using a 15. Blade or iris scissors removing only approximately 1 mm to facilitate healing at the skin edges. The end of the distal phalanx was debrided using a curette where necessary and also shortened using a bone biter. The sharp edges of the bone were then removed using a small rongeur. The wound was then copiously irrigated with normal saline. The wound was copiously irrigated with normal saline. The skin edges were reapproximated with 4-0 Prolene suture. a digital block was performed using some 0.5% plain ropivacaine for postop pain control and a sterile dressing was applied. The patient appears to have tolerated the procedure well and with no complications. All digits were well vascularized conclusion of the case.
[2023-05-30] MEDS: Diphth,Pertus(ACell),Tet Adult 0.5 ML SYRINGE IM (10:31)
== END 2023-05-30 10:50 | disposition home or self-care (01) ==
PROVIDERS: Visit Provider Orthopaedic Surgery
PROC: (CPT 26951; principal; 2023-05-30 07:30)
DX: S68.611A Complete traumatic transphalangeal amputation of left index finger, initial encounter (principal); W31.2XXA Contact with powered woodworking and forming machines, initial encounter; Y93.89 Activity, other specified; Y92.69 Other specified industrial and construction area as the place of occurrence of the external cause; Y99.0 Civilian activity done for income or pay; Z23 Encounter for immunization; Z79.891 Long term (current) use of opiate analgesic; Z88.0 Allergy status to penicillin
CPT/HCPCS: 26951; 11750; 88304; 88311; 90715; J0690; J1885; J2405; J2704; J2795; J3010

== ENCOUNTER → 2023-05-30 07:18 | Outpatient (BNV) | payer OTHER, SELFPAY | PROVIDERS: Visit Provider Orthopaedic Surgery | DX: S68.621A Partial traumatic transphalangeal amputation of left index finger, initial encounter (principal); S67.191A Crushing injury of left index finger, initial encounter; S60.122A Contusion of left index finger with damage to nail, initial encounter | CPT/HCPCS: 11750; 26951 ==

== ENCOUNTER 2023-06-05 08:48 | Outpatient (AMB) | payer OTHER, MEDICAID, SELFPAY ==
--- NOTE | 2023-06-05 09:12 | A.OFFVIS_ITS ---
Intake Intake Visit Reasons: PO LT IF revision amp 05/30/23 AR Intake Note: Quentin is a 38 year old male who presents to the office today for a P/O LT IF revision amp 05/30/23. Pt states he is feeling well. He states the pain is minimal. He sometimes will have numbness and tingling. Allergies Penicillins [PENICILLINS] Allergy (Intermediate, Verified 06/05/23 09:12) HIVES penicillin V Allergy (Unknown, Verified 06/05/23 09:12) rash HPI PO LT IF revision amp 05/30/23 AR HPI Details 38-year-old male who returns to the [facility] today for post-op left index finger revision amputation, 05/30/[address] Flynn. He states he has minimal pain however he does c/o occasional numbness, tingling, and an intermittent ?squeezing? sensation in his finger. He is doing well overall and has no other concerns today. 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 No redness or drainage. He has good sensation throughout the finger however the distal pad of the finger has hypersensitivity. Assessment & Plan Assessment & Plan (1) Finger amputation, traumatic: Code(s): S68.119A - Complete traumatic metacarpophalangeal amputation of unspecified finger, initial encounter Qualifiers: Encounter type: subsequent encounter Qualified Code(s): S68.119D - Complete traumatic metacarpophalangeal amputation of unspecified finger, subsequent encounter (2) Finger laceration: Code(s): S61.219A - Laceration without foreign body of unspecified finger without damage to nail, initial encounter Qualifiers: Encounter type: subsequent encounter Finger: index finger Damage to nail status: with damage Foreign body presence: without foreign body Laterali ty: left Qualified Code(s): S61.311D - Laceration without foreign body of left index finger with damage to nail, subsequent encounter Plan Sutures will remain intact for 2 weeks. His finger was redressed with bacitracin, gauze and coban. He can remove the dressing daily to change and wet it in the shower and pat it dry however he will avoid submerging his hand underwater and avoid dirty work such as working in dirt, grease, or unsanitary type material. He will see me back in 2 weeks for a wound check and suture removal and he will remain out of work till his follow-up. Patient Instructions: Scribed for Tenzin Forrester PA-C, by Srinivasan Denise medical technologist prn, on 06/05/2023 at 8:45 AM EST. I, Tenzin Forrester PA-C, have personally reviewed and agree with the information entered by the scribe. Coding Level of Care Code Global (09587) Diagnoses Traumatic amputation of finger, subsequent encounter S68.119D Encounter type: subsequent encounter Laceration of left index finger without foreign body with damage to nail, subsequent encounter S61.311D Encounter type: subsequent encounter Finger: index finger Damage to nail status: with damage Foreign body presence: without foreign body Laterality: left
== END 2023-06-05 09:49 | disposition home or self-care (01) ==
PROVIDERS: Visit Provider Physician Assistant
DX: S68.119D Complete traumatic metacarpophalangeal amputation of unspecified finger, subsequent encounter (principal); S61.311D Laceration without foreign body of left index finger with damage to nail, subsequent encounter
CPT/HCPCS: 99024

== ENCOUNTER → 2023-06-05 08:48 | Outpatient (BNVA) | payer OTHER, SELFPAY | PROVIDERS: Visit Provider Physician Assistant ==

== ENCOUNTER 2023-06-10 09:54 | Outpatient (AMB) | payer SELFPAY ==
--- NOTE | 2023-06-10 09:55 | A.OFFVISCC_ITS ---
Intake Vital Signs 06/10/23 09:59 BP 100/60 Blood Pressure Location Rt radial Position Sitting Respiration 19 Pulse 98 Pulse Source Pulse Oximeter Intake Visit Reasons: MAT Allergies Penicillins [PENICILLINS] Allergy (Intermediate, Verified 06/05/23 09:12) HIVES penicillin V Allergy (Unknown, Verified 06/05/23 09:12) rash HPI MAT HPI Details Patient presents for MAT appointment Reports he recently underwent surgical repair to his left pointer finger States pain control was very difficult first day, but has since become more tolerable Has no concerns related to recovery at this time Doing well with suboxone 4mg BID HPI Comments History of Present Illness Details Patient presents for MAT visit [facility] Social History Alcohol intake: never Patient Tobacco Use Status: Never used Tobacco 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90 - Opioid use, unspecified, uncomplicated Plan: -Reviewed with him to get his standing labwork completed prior to next visit -Mass pat reviewed -Suboxone script refilled -Follow up 4 weeks, sooner if injection (Brixadi)is delivered prior to next visit Medications: Refilled buprenorphine-naloxone 4-[address] 1 strip/tab under (each) side of tongue 1 film buccal BID 60 ea 0RF Coding Level of Care Code Est Pt Level 3 (85578) Diagnoses Opioid use disorder F11.90
[2023-06-10 09:59] VITALS: BP 100/60; PULSE 98; RESP 19
== END 2023-06-10 10:17 | disposition home or self-care (01) ==
PROVIDERS: Visit Provider Nurse Practitioner Family
DX: F11.90 Opioid use, unspecified, uncomplicated (principal)
CPT/HCPCS: 99213

== ENCOUNTER → 2023-06-10 09:54 | Outpatient (BNVA) | payer OTHER, SELFPAY | PROVIDERS: Visit Provider Nurse Practitioner Family | DX: Z51.81 Encounter for therapeutic drug level monitoring (principal); F11.20 Opioid dependence, uncomplicated | CPT/HCPCS: 99212 ==

== ENCOUNTER 2023-06-19 09:13 | Outpatient (AMB) | payer OTHER, SELFPAY ==
--- NOTE | 2023-06-19 09:17 | MHC.OFFVIS ---
Intake Intake Visit Reasons: PO LT IF revision amp 05/30/23 AR Intake Note: Quentin a 38 year old male who presents today for a post operative left IF revision amp on 05/30/23 AR. Patient reports he is doing well, states a tightness sensation in his finger. Allergies Penicillins [PENICILLINS] Allergy (Intermediate, Verified 06/19/23 09:25) HIVES HPI PO LT IF revision amp 05/30/23 AR HPI Details 38-year-old male who returns to the office today for post-op left index finger revision amputation, 05/30/[address] Flynn. He states he has random intermittent pain as well as tightness sensation in his finger however he is doing well overall. He has no other concerns today. 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 No redness or drainage. He has good sensation throughout the finger however the distal pad of the finger has hypersensitivity. Assessment & Plan Assessment & Plan (1) Finger amputation, traumatic: Code(s): S68.119A - Complete traumatic metacarpophalangeal amputation of unspecified finger, initial encounter Qualifiers: Encounter type: subsequent encounter Qualified Code(s): S68.119D - Complete traumatic metacarpophalangeal amputation of unspecified finger, subsequent encounter (2) Finger laceration: Code(s): S61.219A - Laceration without foreign body of unspecified finger without damage to nail, initial encounter Qualifiers: Damage to nail status: with damage Encounter type: subsequent encounter Finger: index finger Foreign body presence: without foreign body Laterality: left Qualified Code(s): S61.311D - Laceration without foreign body of left index finger with damage to nail, subsequent encounter Plan All but 2 sutures were removed in the office today. He will switch to dry dressing changes to allow dry scabbing. He will see me back next week for remaining suture removal, sooner if needed. Patient Instructions: Scribed for Tenzin Forrester PA-C, by Srinivasan Abhang, medical billing and coding specialist, on 06/19/2023 at 9:15 AM Tenzin CARR PA-C, have personally reviewed and agree with the information entered by the scribe. Coding Level of Care Code Global (42122) Diagnoses Traumatic amputation of finger, subsequent encounter S68.119D Encounter type: subsequent encounter Laceration of left index finger without foreign body with damage to nail, subsequent encounter S61.311D Damage to nail status: with damage Encounter type: subsequent encounter Finger: index finger Foreign body presence: without foreign body Laterality: left
== END 2023-06-19 09:57 | disposition home or self-care (01) ==
PROVIDERS: Visit Provider Physician Assistant
DX: S68.111D Complete traumatic metacarpophalangeal amputation of left index finger, subsequent encounter (principal); S61.311D Laceration without foreign body of left index finger with damage to nail, subsequent encounter
CPT/HCPCS: 99024

== ENCOUNTER → 2023-06-19 09:13 | Outpatient (BNVA) | payer OTHER, SELFPAY | PROVIDERS: Visit Provider Physician Assistant | DX: S68.111D Complete traumatic metacarpophalangeal amputation of left index finger, subsequent encounter (principal); X58.XXXD Exposure to other specified factors, subsequent encounter | CPT/HCPCS: 99212 ==

== ENCOUNTER 2023-06-27 10:08 | Outpatient (AMB) | payer OTHER, SELFPAY ==
--- NOTE | 2023-06-27 10:11 | A.OFFVIS_ITS ---
Intake Visit Reasons: PO LT IF revision amp 05/30/23 AR Intake Note: Quentin a 38 year old male who presents today for a post operative left IF revision amp, DOS 05/30/23 AR. Patient reports he is doing well, here to remove the rest of his sutures. Allergies Penicillins [PENICILLINS] Allergy (Intermediate, Verified 06/27/23 10:21) HIVES HPI HPI PO LT IF revision amp 05/30/23 AR: Details: 38-year-old male who returns to the office today for post-op left index finger revision amputation, 05/30/[address] Flynn. He states he has improvement in his pain and is doing well overall. He is here to remove the rest of the sutures. He has no other concerns. 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 No redness or drainage. He has good sensation throughout the finger however the distal pad of the finger has hypersensitivity. Assessment & Plan Assessment & Plan (1) Finger amputation, traumatic: Code(s): S68.119A - Complete traumatic metacarpophalangeal amputation of unspecified finger, initial encounter Category: Medical Qualifiers: Encounter type: subsequent encounter Qualified Code(s): S68.119D - Complete traumatic metacarpophalangeal amputation of unspecified finger, subsequent encounter Plan Remaining sutures were removed in the office today. I encouraged keep the area clean and dry. He can return work on 06/29 with no use of hand tool, no gripping or lifting with the left hand for the next 2 weeks, and then return to regular duty. If symptoms persist or worsens, patient will contact the office, otherwise follow-up as needed. Patient Instructions: Scribed for Tenzin Forrester PA-C, by Srinivasan Denise biomedical equipment specialist, on 06/27/2023 at 10:15 AM EST. I, Tenzin Forrester PA-C, have personally reviewed and agree with the information entered by the scribe. Coding Level of Care Code Global (14826) Diagnoses Traumatic amputation of finger, subsequent encounter S68.119D Encounter type: subsequent encounter
== END 2023-06-27 10:23 | disposition home or self-care (01) ==
PROVIDERS: Visit Provider Physician Assistant
DX: S68.111D Complete traumatic metacarpophalangeal amputation of left index finger, subsequent encounter (principal); Z48.89 Encounter for other specified surgical aftercare
CPT/HCPCS: 99024

== ENCOUNTER → 2023-06-27 10:08 | Outpatient (BNVA) | payer OTHER, SELFPAY | PROVIDERS: Visit Provider Physician Assistant | DX: S68.111D Complete traumatic metacarpophalangeal amputation of left index finger, subsequent encounter (principal) | CPT/HCPCS: 99212 ==

== ENCOUNTER 2023-07-08 16:13 | Outpatient (AMB) | payer SELFPAY ==
--- NOTE | 2023-07-08 16:12 | MHC.AM.SUB ---
Vital Signs 07/08/23 16:14 BP 134/96 H Blood Pressure Location Lt brachial Position Sitting Pulse 81 Pulse Source Pulse Oximeter Pulse Oximetry (%) 98 Oxygen Delivery Method Room Air Intake Visit Reasons: MAT Allergies Penicillins [PENICILLINS] Allergy (Intermediate, Verified 06/27/23 10:21) HIVES HPI HPI MAT: Details: Patient presents for MAT visit Reports things are going well for him, he has been on light duty and goes off light duty next month Has no concerns for recovery No cravings or breakthrough withdrawal symptoms Doing well overall HPI Comments Details: Patient presents for MAT visit [facility] Social History (Reviewed 06/27/23 @ 10:22 by Bev Henry [facility]) Alcohol intake: never Patient Tobacco Use Status: Never used Tobacco 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, 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 Review of Systems Const Reports as per HPI Physical Exam Vital Signs: Last Vital Signs Pulse 81 07/08/23 16:14 BP 134/96 H 07/08/23 16:14 Pulse Ox 98 07/08/23 16:14 Oxygen Delivery Method Room Air 07/08/23 16:14 Const General: cooperative and no acute distress Resp Effort & Inspection: normal respiratory effort and able to speak in complete sentences Psych Appearance: grossly normal Mental Status: mental status grossly normal Speech and movement: Normal speech and movement present Affect: normal affect Attitude: cooperative Thought process: Normal thought process present Assessment & Plan Assessment & Plan (1) Opioid use disorder: Code(s): F11.90 - Opioid use, unspecified, uncomplicated Category: Medical Plan: -Mass pat reviewed -Suboxone refilled -Follow up 4 weeks Medications: Refilled buprenorphine-naloxone 4-[address] 1 strip/tab under (each) side of tongue 1 film buccal BID 60 ea 0RF
[2023-07-08 16:14] VITALS: BP 134/96; PULSE 81; O2SAT 98
== END 2023-07-08 16:24 | disposition home or self-care (01) ==
PROVIDERS: Visit Provider Nurse Practitioner Family
DX: F11.90 Opioid use, unspecified, uncomplicated (principal)
CPT/HCPCS: 99213

== ENCOUNTER → 2023-07-08 16:13 | Outpatient (BNVA) | payer OTHER, SELFPAY | PROVIDERS: Visit Provider Nurse Practitioner Family | DX: Z51.81 Encounter for therapeutic drug level monitoring (principal); F11.20 Opioid dependence, uncomplicated | CPT/HCPCS: 99212 ==

== ENCOUNTER 2023-07-30 07:57 | Emergency (ER) | payer OTHER, SELFPAY ==
--- NOTE | ~2023-07-30 | CT_ITS ---
CT TEMPORAL BONES WITHOUT IV CONTRAST INDICATION: Left-sided tenderness to palpation and pain. COMPARISON: Maxillofacial CT 03/07/2022. TECHNIQUE: Multidetector CT acquisitions of the temporal bones was obtained without IV contrast. This CT examination was performed using dose optimization techniques as appropriate, variously including the following: *Automated exposure control *Adjustment of mA and/or kV according to patient size (this includes techniques or standardized protocols for targeted exams where dose is matched to indication/reason for exam; i.e. extremities or head) *Use of iterative reconstruction technique FINDINGS: The mastoid air cells and middle ear cavities are clear. The ossicular chains are intact bilaterally. The inner ear structures including the cochlea, vestibules, and semicircular canals are normal. The vestibular aqueducts are not enlarged. The internal carotid arteries remain will cover with bone and the sigmoid plates are intact. External auditory canals are unremarkable. There are no inflammatory changes adjacent to the cartilaginous external auditory canals and the auricles are symmetric and normal in appearance. No discrete fluid collections are identified within the soft tissues. Intracranial compartment is degraded by artifact and not well assessed. There is moderate mucosal thickening within the inferior left maxillary sinus and mild mucosal thickening within the inferior right maxillary sinus. Moderate mucosal thickening and a fluid level within the right frontal sinus. Mild mucosal thickening within the ethmoid air cells and sphenoid sinuses bilaterally. Pneumatization of the optic struts and anterior clinoid processes bilaterally. There is significant leftward deviation of the nasal septum with a leftward directed nasal septal spur that deviates the left middle turbinate. CT/CT mastoid IMPRESSION: - No acute findings within the temporal bones. The mastoid air cells and middle ear cavities are clear. No cellulitic changes and no discrete fluid collections identified. - Sinus disease including a fluid level within the right frontal sinus the can be correlated for clinical signs of acute sinusitis. - There is significant leftward deviation of the nasal septum with a leftward directed nasal septal spur that deviates the left middle turbinate.
[2023-07-30 08:04] VITALS: BP 129/80; PULSE 59; RESP 18; TEMP 37.2; O2SAT 99; BMI 21.2
[2023-07-30 08:22] LABS: MANUAL DIFF FLAG NO
--- NOTE | 2023-07-30 08:22 | ED_ITS ---
HPI - Neuro Symptoms/Deficit General Chief Complaint: Neuro Symptoms/Deficit Stated Complaint: L sided facial numbness Time Seen by Provider: 07/30/23 08:14 Source: patient Mode of arrival: ambulatory Limitations: no limitations History of Present Illness ED Provider: JEANNETTE CANTRELL Narrative: 38 yo male with hx of opiate use disorder well controlled here with c/o URI for the past week scratchy throat sinus congestion then 2 days ago developed L ear ache that was very sore and painful radiating into the L neck and mastoid. He has never had ear infection before. He woke up at midnight and had L facial tingling and could not drink appropriately as water fell out of his mouth. He noted upon waking that the L sided facial deficits still persisted no other deficits no prior bells palsy Onset (ago): hour(s) (12am) Location: left face History of same: No Severity: moderate Quality: weak and tingling Relieving factors: none Exacerbating factors: none Context: gradual onset On Anticoagulants: No Associated symptoms: other (URI and L ear pain) Treatments Prior to Arrival: none Related Data Previous Rx's ?Medication ?Instructions ?Recorded acetaminophen 500 mg tablet 1,000 mg (2 x 500 mg) PO QID PRN 11/03/21 pain #30 tabs acetaminophen 500 mg tablet 1,000 mg (2 x 500 mg) PO Q6H PRN 05/24/23 (Tylenol Extra Strength) pain #30 tabs ibuprofen 600 mg tablet 600 mg PO Q6H PRN pain #30 tabs 05/24/23 buprenorphine 64 mg/0.18 mL 64 mg (0.18 mL) subcut Q28D #0.18 05/27/23 solution,exten.rel.subcutaneous mL syringe ibuprofen 600 mg tablet 600 mg PO Q6-8H PRN pain #40 tabs 05/30/23 buprenorphine 4 mg-naloxone 1 mg 1 film buccal BID #60 ea 07/08/23 sublingual film cefuroxime axetil 500 mg tablet 500 mg PO BID 7 days #14 tabs 07/30/23 prednisone 20 mg tablet 40 mg (2 x 20 mg) PO DAILY 4 days 07/30/23 #8 tabs valacyclovir 1 gram tablet 1,000 mg PO TID 7 days #21 tabs 07/30/23 (Valtrex) Allergies Allergy/AdvReac Type Severity Reaction Status Date / Time Penicillins [PENICILLINS] Allergy Intermediate HIVES Verified 07/30/23 08:09 Review of Systems 2 Review of Systems: Constitutional : No Fever, No Chills, No Fatigue ENT/Mouth : No sore throat, No Rhinorrhea, pos ear pain Eyes: No Eye Pain, No Swelling, No Redness Cardiovascular : No Chest Pain, No SOB, No Dyspnea on Exertion Respiratory : No Cough, No Sputum Gastrointestinal : No Nausea, No Vomiting, No Diarrhea, No abdominal Pain Genitourinary : No Dysuria, No Urinary Frequency, No Hematuria, Musculoskeletal : No joint pain, No Myalgias, No Joint Swelling Skin : No Skin Lesions, No rash Neuro : No Weakness, No Numbness, No Dizziness, no Headache Psych : No Anxiety/Panic, No Depression All other systems reviewed and are negative [facility] Past Medical History Attestation statement: The following information was validated with the patient. 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 Oriented X3. No acute distress. Eyes: Pupils equal, round and reactive to light. ENT: Pharynx normal. mild L mastoid ttp no swelling noted, no mass on L neck, L TM effusion no perforation there is bulging noted with erythema Neck: Normal inspection. Neck supple. CVS: Normal heart rate and rhythm. Pulses normal. Respiratory: No respiratory distress. Breath sounds normal. Abdomen: Soft and non-tender. Skin: Skin warm and dry. Normal skin color. Normal skin turgor. Extremities: No lower extremity edema. Neuro: Oriented X 3. L facial droop involving mouth, cheek, unable to close or fully open eyelid unable to move forehead well. tingling and parasthesias noted to L side of face Medications Administered Discontinued Medications Generic Name Dose Route Start Last Admin Trade Name Vladislav PRN Reason Stop Dose Admin Prednisone 40 mg 07/30/23 08:21 07/30/23 08:45 Prednisone 20 Mg Tablet PO 07/30/23 08:22 40 mg ONCE ONE Administration Valacyclovir HCl 1,000 mg 07/30/23 08:21 07/30/23 08:45 Valacyclovir Hcl 1,000 Mg Tablet PO 07/30/23 08:22 1,000 mg ONCE ONE Administration Medical Decision Making Medical Decision Making [facility] Narrative: 38 yo male with PMH of opiate use disorder here with recent URI and L sided ear pain mastoid pain then developed L sided tingling and facial weakness at midnight that involves the forehead at this time no other deficits history and exam consistent with bells palsy. At this time ESR, lyme panel, viral swabs ordered. Will obtain mastoid CT scan. start on prednisone and acyclovir if mastoid study negative will start on augmentin. Differential Diagnosis Differential Diagnoses: The differential diagnosis associated with the presentation includes bells palsy, mastoiditis Admission/Observation Consideration of admission/observation: Escalation of care including admission/observation considered mastoid CT scan normal stable for DC Lab Data [facility] Lab Attestation statement: I reviewed the patient's lab results. 07/30/23 08:15 Labs: Lab Results 07/30/23 Range/Units 08:15 WBC 4.7 L (4.8-10.8) X10*3/uL RBC 4.10 L (4.60-5.80) X10*6/uL Hgb 12.1 L (14.0-18.0) g/dl Hct 35.0 L (42.0-52.0) % MCV 85.4 (80.0-98.0) fL MCH 29.5 (27.0-33.0) pg MCHC 34.6 (31.0-36.0) g/dl RDW 12.1 (11.0-16.0) % Plt Count 235 D (160-400) X10*3/uL MPV 8.9 L (9.4-12.4) fL Immature Gran % (Auto) 0.6 H (0.0-0.4) % Neut % (Auto) 61.5 (45-73) % Lymph % (Auto) 26.8 (20-40) % [place] % (Auto) 6.4 (2-11) % Eos % (Auto) 4.1 H (0-4) % Baso % (Auto) 0.6 (0-2) % Lymph # (Auto) 1.3 (1.2-4.9) X10*3/uL [place] # (Auto) 0.3 (0.1-1.2) X10*3/uL Eos # (Auto) 0.2 (0.0-0.4) X10*3/uL Baso # (Auto) 0.0 (0.0-0.2) X10*3/uL Abs Immat Gran (auto) 0.03 (0.00-0.03) X10*3/uL Absolute Neuts (auto) 2.9 (2.0-8.3) x10*3/uL Absolute Nucleated RBC 0.000 (0.0-0.012) X10*3/uL Nucleated RBC % (auto) 0.0 (0.0-0.2) /100WBC ESR 10 (0-15) MM/HR Influenza Type A (PCR) NEGATIVE (Negative) Influenza Type B (PCR) NEGATIVE (Negative) RSV RNA Qual (PCR) NEGATIVE (Negative) SARS-CoV-2 RNA (RT-PCR) NEGATIVE (Negative) S. pyogenes GrpA DOMINGO Negative (Negative) Independent Interpretation I performed an independent interpretation of an: CT Scan Radiology Impression Discussion of test interpretation with radiology: I have reviewed the radiologist's reading. External Record Review External record reviewed: Inpatient record Prescription Management I considered prescription management with: Antiviral, Antibiotic and Other Discharge Plan Discharge Clinical Impression: Torres's palsy Otitis media Qualifiers: Otitis media type: suppurative Chronicity: acute Laterality: left Recurrence: n on-recurrent Spontaneous tympanic membrane rupture: without spontaneous rupture Qualified Code(s): H66.002 - Acute suppurative otitis media without spontaneous rupture of ear drum, left ear Sinusitis Qualifiers: Sinusitis location: frontal Chronicity: acute Recurrence: non-recurrent Q ualified Code(s): J01.10 - Acute frontal sinusitis, unspecified Patient Disposition: Home, Self-Care Instructions: Sinusitis (ED), Torres Palsy (ED), Ear Infection (ED) Additional Instructions: use lubricating eye drops and you may need to tape eye shut. the facial symptoms should improve in a week but can recur. finish all medications. follow up with your doctor. return for worsening pain, swelling or any other concerns. start prednisone next dose tomorrow on 07/30 Prescriptions: New valacyclovir [Valtrex] 1 gram tablet 1,000 mg PO TID 7 Days Qty: 21 0RF prednisone 20 mg tablet 40 mg PO DAILY 4 Days Qty: 8 0RF cefuroxime axetil 500 mg tablet 500 mg PO BID 7 Days Qty: 14 0RF No Action acetaminophen 500 mg tablet 1,000 mg PO QID PRN (Reason: pain) Qty: 30 0RF ibuprofen 600 mg tablet 600 mg PO Q6-8H PRN (Reason: pain) Qty: 40 0RF acetaminophen [Tylenol Extra Strength] 500 mg tablet 1,000 mg PO Q6H PRN (Reason: pain) Qty: 30 0RF Rx Instructions: Do not exceed greater than 4 g in a 24 hour. ibuprofen 600 mg tablet 600 mg PO Q6H PRN (Reason: pain) Qty: 30 0RF buprenorphine-naloxone 4-1 mg film 1 film buccal BID Qty: 60 0RF Rx Instructions: place 1 strip/tab under (each) side of tongue buprenorphine 64 mg/0.18 mL solution, extended rel syringe 64 mg subcut Q28D Qty: 0.18 5RF Stand Alone Forms: Work/School Release Print Language: Armenian
[2023-07-30 08:26] LABS: Basophils Percent Auto 0.6 % (0-2); Eosinophils Absolute Auto 0.2 X10*3/uL (0.0-0.4); Eosinophils Percent Auto 4.1 % (0-4); Hemoglobin 12.1 g/dl (14.0-18.0); Imm Gran Abs Auto 0.03 X10*3/uL (0.00-0.03); Imm Gran Pct Auto 0.6 % (0.0-0.4); Lymphocytes Absolute Auto 1.3 X10*3/uL (1.2-4.9); Lymphocytes Percent Auto 26.8 % (20-40); Mean Corpuscular HGB Conc 34.6 g/dl (31.0-36.0); Mean Corpuscular Hemoglobin 29.5 pg (27.0-33.0); Mean Corpuscular Volume 85.4 fL (80.0-98.0); Mean Platelet Volume 8.9 fL (9.4-12.4); Monocytes Absolute Auto 0.3 X10*3/uL (0.1-1.2); Monocytes Percent Auto 6.4 % (2-11); Neutrophils Absolute Auto 2.9 x10*3/uL (2.0-8.3); Neutrophils Percent Auto 61.5 % (45-73); Platelet Count 235 X10*3/uL (160-400); Red Cell Distribution Width 12.1 % (11.0-16.0); White Blood Count 4.7 X10*3/uL (4.8-10.8)
[2023-07-30 08:35] LABS: IDNOW Serial# 08D9AD1C; Strep A Nucleic Acid Negative (Negative)
[2023-07-30] MEDS: predniSONE 20 MG TABLET 40 MG PO (08:45)
[2023-07-30] MEDS: valACYclovir HCL 1,000 MG TABLET 1000 MG PO (08:45)
[2023-07-30 09:00] LABS: Influenza A PCR NEGATIVE (Negative); Influenza B PCR NEGATIVE (Negative); Resp Syncy Virus RNA Qual PCR NEGATIVE (Negative); SARS COV2 PCR INHOUSE NEGATIVE (Negative)
[2023-07-30 09:32] LABS: Erythrocyte Sedimentation Rate 10 MM/HR (0-15)
[2023-07-30 09:47] VITALS: BP 125/78; PULSE 59; RESP 18; TEMP 36.6; O2SAT 100
[2023-07-31 08:23] LABS: Lyme Abs Screen <0.90 index
== END 2023-07-30 09:48 | disposition home or self-care (01) ==
PROVIDERS: Emergency Provider Emergency Medicine
DX: G51.0 Bell's palsy (principal); H66.002 Acute suppurative otitis media without spontaneous rupture of ear drum, left ear; J01.10 Acute frontal sinusitis, unspecified; R09.89 Other specified symptoms and signs involving the circulatory and respiratory systems; R09.81 Nasal congestion; H92.02 Otalgia, left ear; Z03.818 Encounter for observation for suspected exposure to other biological agents ruled out
CPT/HCPCS: 0241U; 36415; 70481; 85025; 85652; 86617; 86618; 87651; 99283; 99284

== ENCOUNTER 2023-08-05 15:59 | Outpatient (AMB) | payer SELFPAY ==
[2023-08-05 16:28] VITALS: BP 140/90; PULSE 70; O2SAT 96
--- NOTE | 2023-08-05 16:28 | A.OFFVISCC_ITS ---
Vital Signs 08/05/23 16:28 BP 140/90 H Blood Pressure Location Lt brachial Pulse 70 Pulse Source Pulse Oximeter Pulse Oximetry (%) 96 Oxygen Delivery Method Room Air Intake Visit Reasons: MAT visit Allergies Penicillins [PENICILLINS] Allergy (Intermediate, Verified 07/30/23 08:09) HIVES HPI HPI MAT visit: Details: Patient presents for MAT appointment Currently being treated for Torres's Palsy, states it was likely from a sinus infection he had Has no concerns for recovery at this time Tolerating suboxone 4mg BID PFS Medical History Opioid use disorder Social History Alcohol intake: never Patient Tobacco Use Status: Never used Tobacco 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, 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 Review of Systems Const Reports as per HPI Physical Exam Const General: cooperative and no acute distress Resp Effort & Inspection: normal respiratory effort Psych Appearance: grossly normal Mental Status: mental status grossly normal Speech and movement: Normal speech and movement present Affect: normal affect Attitude: cooperative Assessment & Plan Assessment & Plan (1) Opioid use disorder: Code(s): F11.90 - Opioid use, unspecified, uncomplicated Category: Medical Plan: -Mass pat reviewed -Continue suboxone at current dose, refill sent -Follow up 1 month Medications: Refilled buprenorphine-naloxone 4-[address] 1 strip/tab under (each) side of tongue 1 film buccal BID 60 ea 0RF
== END 2023-08-05 16:16 | disposition home or self-care (01) ==
PROVIDERS: Visit Provider Nurse Practitioner Family
DX: F11.90 Opioid use, unspecified, uncomplicated (principal)
CPT/HCPCS: 99213

== ENCOUNTER → 2023-08-05 15:59 | Outpatient (BNVA) | payer OTHER, SELFPAY | PROVIDERS: Visit Provider Nurse Practitioner Family | DX: F11.20 Opioid dependence, uncomplicated (principal); Z79.899 Other long term (current) drug therapy | CPT/HCPCS: 99212 ==

== ENCOUNTER 2023-10-02 12:55 | Outpatient (REF) | payer OTHER, SELFPAY ==
--- NOTE | ~2023-10-02 | XR_ITS ---
EXAMINATION: XR HAND, LEFT CLINICAL INFORMATION: Pain in left hand, attention third digit. COMPARISON: 05/24/2023 left second digit. TECHNIQUE: PA and oblique views of the left hand as well as lateral view of the second digit. FINDINGS: There has been interval progressive amputation of the [id number] portion of the distal tuft of the second digit distal phalanx with associated soft tissue swelling. Alignment maintained. Bone mineralization is normal. XR/XR hand LT min 3V IMPRESSION: Interval progressive amputation of the mid to distal portion of the distal tuft of the second digit distal phalanx with associated soft tissue swelling.
== END 2023-10-02 12:56 | disposition home or self-care (01) ==
LOC: HO.HOSX 12:55
PROVIDERS: Visit Provider Orthopaedic Surgery
DX: F11.20 Opioid dependence, uncomplicated (principal); M79.642 Pain in left hand; L60.8 Other nail disorders
CPT/HCPCS: 73130; 99212

== ENCOUNTER 2023-10-02 13:06 | Outpatient (AMB) | payer SELFPAY ==
--- NOTE | 2023-10-02 13:34 | A.OFFVIS_ITS ---
Intake Visit Reasons: OV- LT IF revision amp 05/30/23 Intake Note: Quentin is a 38 yo male who presents today for follow up evaluation of left index finger revision amputation done 05/30/23. Patient reports it was doing fine until nail started growing a few weeks ago and is now again painful, numb, and tingly. Reports joint is stiff. He is not taking anything for pain at this time. Allergies Penicillins [PENICILLINS] Allergy (Intermediate, Verified 10/02/23 13:38) HIVES HPI HPI OV- LT IF revision amp 05/30/23 : Details: Quentin is a 38 year old 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 man who presents with complaints of worsening pain & numbness in his left index finger. He has a Hx of a left index finger revision amputation & excision of nail matrices, DOS: 05/30/23. He says he was doing well until a few weeks ago. He says his nail began to regrow on his index finger, causing him pain, numbness, and tingling in his finger. He says it feels like there is a rubber band wrapped around his fing er . He has some swelling & stiffness in his finger. He says he was doing fine before this nail began to return. He denies taking anything for his pain. 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 Normal sensation to all other digits No thenar or intrinsic wasting Good APB muscle belly firing and good finger cross Vascular: Cap refill brisk ROM: He can make a fist and extend all his digits His amputation site is well healed and nontender, except for some mild tenderness over the nail horn. He has a 2-3 mm nail horn over the dorsal central aspect of the digit. Interestingly, it appears to be rather transversely oriented, growing from ulnar to radial. Psych Appearance: grossly normal Affect: normal affect Attitude: cooperative Assessment & Plan Assessment & Plan (1) Acquired deformity of nail of finger: Comment: Left IF Code(s): L60.8 - Other nail disorders Category: Medical Plan Assessment & Plan: 1. Left index finger nail horn 2. Left index finger distal phalanx partial traumatic amputation at distal phalanx level, S/P revision amputation, I&D of open fracture, and excision of germinal and sterile nail matrices DOS: 05/10/23 The patient appears to be doing well He has developed a nail horn I discussed treatment options with him I recommend surgery, and he is in agreement The risks and benefits of operative treatment were discussed with the patient and the patient wishes to proceed with surgery. These risks include, but are not limited to risk of damage to blood vessels, nerves, tendons, infection, recurrence, incomplete relief of preoperative symptoms, persistent pain, possible need for further surgery and the risks associated with regional blocks and anesthesia. The plan is to take the patient to the operating room sometime in the next few weeks for the following procedures: 1. Left index finger excision of nail horn, under local All of the preoperative paperwork including the consent was reviewed today. All the patient's questions were answered. The patient understands that they will be contacted by our otr van cdl truck driver soon to schedule this procedure He denies Diabetes, blood thinners, asthma, heart, lung, kidney issues He has a Hx of opioid abuse and is currently on Suboxone. Scribed for Rajni Flynn MD by Bronson Correa, medical program specialist, on 10/02/23 at 1:55 PM, EST. Orders: Orders XR hand LT min 3V Today M79.642 - Pain in left hand Coding Level of Care Code Est Pt Level 4 (01418) Diagnoses Acquired deformity of nail of finger L60.8
== END 2023-10-02 14:21 | disposition home or self-care (01) ==
PROVIDERS: Visit Provider Orthopaedic Surgery
DX: L60.8 Other nail disorders (principal)
CPT/HCPCS: 99214

== ENCOUNTER 2023-10-02 14:22 | Outpatient (AMB) | payer MEDICAID, SELFPAY ==
[2023-10-02 14:41] VITALS: BP 110/70; PULSE 57; O2SAT 96
--- NOTE | 2023-10-02 14:41 | MHC.AM.SUB ---
Vital Signs 10/02/23 14:41 BP 110/70 Blood Pressure Location Rt brachial Position Sitting Pulse 57 Pulse Source Pulse Oximeter Pulse Oximetry (%) 96 Oxygen Delivery Method Room Air Intake Visit Reasons: MAT Office Allergies Penicillins [PENICILLINS] Allergy (Intermediate, Verified 10/02/23 13:38) HIVES HPI HPI MAT Office: Details: Patient presents for follow up Currently prescribed suboxone 4mg BID tolerating current dose unable to transition to injection due to insurance issues [facility] Medical History Opioid use disorder Social History Alcohol intake: never Patient Tobacco Use Status: Never used Tobacco 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, 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 Review of Systems Const Reports as per HPI and Reports no additional complaints Physical Exam Vital Signs: Last Vital Signs Pulse 57 10/02/23 14:41 BP 110/70 10/02/23 14:41 Pulse Ox 96 10/02/23 14:41 Oxygen Delivery Method Room Air 10/02/23 14:41 Const General: cooperative and no acute distress Psych Appearance: grossly normal Mental Status: mental status grossly normal Speech and movement: Normal speech and movement present Affect: normal affect Attitude: cooperative Assessment & Plan Assessment & Plan (1) Opioid use disorder: Code(s): F11.90 - Opioid use, unspecified, uncomplicated Category: Medical Plan: -continue suboxone at current dose Medications: Refilled buprenorphine-naloxone 4-1 mg 1 film buccal BID 60 ea 0RF
== END 2023-10-02 15:07 | disposition home or self-care (01) ==
PROVIDERS: Visit Provider Nurse Practitioner Psychiatric/Mental Health
DX: F11.90 Opioid use, unspecified, uncomplicated (principal)
CPT/HCPCS: 99213

== ENCOUNTER 2023-10-24 10:02 | Day surgery (SDC) | payer OTHER, SELFPAY ==
--- NOTE | 2023-10-24 10:46 | P.OP_ITS ---
Operative Note Operative Note Date of Service: 10/24/23 Narrative: Operative Note Preop diagnosis: 1. Left index finger nail horn Postop diagnosis: same Procedure: 1. Left index finger excision of nail horn and germinal nail matrix Surgeon: Rajni Flynn MD Implementation Specialist Payroll: Quentin BRIGGS Anesthesia: digital block using 1% lidocaine with epinephrine Findings: nail horn EBL: Less than 5 mL Tourniquet time: None Specimens: Nail horn and nail matrix sent to pathology Complications: None Disposition: Brought to recovery room in stable condition Plan: Follow-up for 10-14 days for wound check and suture removal and to check pathology Indications: The patient is 38 years old, with a nail horn, status post revision amputation of his left index finger . The risks and benefits of operative treatment including but not limited to risk of damage to blood vessels, nerves, tendons, infection, persistent pain, persistent symptoms, recurrence or possible need for additional surgery were discussed with the patient and the patient wishes to proceed with surgery. Procedure: Once consent was obtained a digital block was performed in the preop area using a combination of 1% lidocaine with epinephrine. The patient was then brought back to the operating suite and placed on the operative table in supine position. A tourniquet was applied to the proximal aspect of the left upper extremity and the limb was prepped and draped in a standard surgical fashion. Once assured that we had a good block, an elliptical incision was made about the transversely oriented nail horn at the tip of the left index finger amputation site. The incision extended proximal to the nail horn to include the germinal matrix origin, and down to the tip of the distal phalanx. The nail horn and it's associated tissue was removed and placed on the back table to be sent to pathology. A small rongeur was used to further debride the area of origin to decrease likeliness of recurrence. Once satisfied with our excision of the nail horn and germinal matrix the wound was copiously irrigated with normal saline and hemostasis was obtained with a brief period of local pressure. The skin edges were reapproximated with some 4.0 nylon suture material and a sterile dressing was applied. The patient appears to have tolerated the procedure well and with no complications. All digits were well vascularized at the conclusion of the case.
[2023-10-24 10:58] VITALS: BMI 20.2
[2023-10-24 11:01] VITALS: BP 131/80; PULSE 69; RESP 18; TEMP 36.7; O2SAT 96
--- NOTE | 2023-10-24 12:13 | MHC.SHP ---
Pre-Procedural Eval Section A - 24 Hr Update-Section A only Date of Service: 10/24/23 The patient is an INPATIENT: No Changes since office visit: No Cold of Flu in the past 2 weeks, No New Medical Problems, No Changes in Medication and No Patient answered all questions The patient has been examined within 24 hours of the surgical procedure. The History & Physical has been completed within 30 days and I have reviewed it.: Yes Section B - Complete if H&P > 30 days Chief Complaint: Other nail disorders Allergies: Allergies Allergy/AdvReac Type Severity Reaction Status Date / Time Penicillins [PENICILLINS] Allergy Intermediate HIVES Verified 10/24/23 11:07 Plan Diagnosis/Plan: Unchanged I have reviewed the history and physical and performed a pertinent physical examination on my patient. No changes have occurred unless specified. Time Spent With Patient Time: Total time managing care of this patient today ____ minutes.
[2023-10-24 12:48] VITALS: BP 126/65; PULSE 88; RESP 18
== END 2023-10-24 13:00 | disposition home or self-care (01) ==
PROVIDERS: Visit Provider Orthopaedic Surgery
PROC: (CPT 11750; principal; 2023-10-24 11:50)
DX: L60.8 Other nail disorders (principal); L84 Corns and callosities; Z89.022 Acquired absence of left finger(s); F11.90 Opioid use, unspecified, uncomplicated; Z88.0 Allergy status to penicillin
CPT/HCPCS: 11750; 88304; J0171

== ENCOUNTER → 2023-10-24 10:02 | Outpatient (BNV) | payer OTHER, SELFPAY | PROVIDERS: Visit Provider Orthopaedic Surgery | DX: L60.8 Other nail disorders (principal) | CPT/HCPCS: 11750 ==

== ENCOUNTER 2023-10-30 15:31 | Outpatient (AMB) | payer SELFPAY ==
--- NOTE | 2023-11-08 18:06 | MHC.AM.SUB ---
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
== END 2023-10-30 16:05 | disposition home or self-care (01) ==
PROVIDERS: Visit Provider Nurse Practitioner Psychiatric/Mental Health
DX: F11.21 Opioid dependence, in remission (principal)
CPT/HCPCS: 99214

== ENCOUNTER → 2023-10-30 15:31 | Outpatient (BNVA) | payer OTHER, SELFPAY | PROVIDERS: Visit Provider Nurse Practitioner Psychiatric/Mental Health | DX: F11.21 Opioid dependence, in remission (principal) | CPT/HCPCS: 99212 ==

== ENCOUNTER 2023-11-05 14:55 | Outpatient (AMB) | payer SELFPAY ==
--- NOTE | 2023-11-05 15:43 | A.OFFVIS_ITS ---
Vital Signs 11/05/23 16:02 Height 5 ft 11 in Weight 145 lb BMI 20.2 Intake Visit Reasons: PO LT IF excision of nail horn 10/24/23 AR Intake Note: Quentin is a 38 yo 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 who presents today post operatively s/p left index finger nail horn excision done 10/24/[address] Flynn. Denies numbness, tingling, or locking on finger. Allergies Penicillins [PENICILLINS] Allergy (Intermediate, Verified 11/05/23 16:02) HIVES HPI HPI PO LT IF excision of nail horn 10/24/23 AR: Details: Quentin is a 38 year old 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 man who returns S/P excision of left index finger nail horn, DOS: 10/24/23. He has a Hx of a left index finger revision amputation & excision of nail matrices, DOS: 05/30/23. He says he is doing well, without any pain or numbness. 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 Sutures removed and Steri-Strips applied He can make a fist and extend all his digits Sensation is intact Cap refill is brisk Pathology report from 10/24/23 Diagnosis Skin, left index finger, excision: Clavus; negative for malignancy Psych Appearance: grossly normal Affect: normal affect Attitude: cooperative Assessment & Plan Assessment & Plan (1) Acquired deformity of nail of finger: Comment: Left IF Code(s): L60.8 - Other nail disorders Category: Medical Plan Assessment & Plan: 1. Left index finger nail horn, S/P excision DOS: 10/24/23 2. Left index finger distal phalanx partial traumatic amputation at distal phalanx level, S/P revision amputation, I&D of open fracture, and excision of germinal and sterile nail matrices DOS: 05/10/23 The patient appears to be doing well post-operatively I educated him about the post-operative course I explained the signs and symptoms of infection, if the patient develops any new or worsening erythema, drainage, pain, or warmth they should contact the clinic or attend the ED. I discussed activity modifications, he is to lift nothing heavier than a cellphone for the next two weeks He will perform gentle ROM exercises at home He should avoid any underwater activities for the next 5 days He should gently massage about the incision site to reduce the risk of hypersensitivity He can follow up prn Scribed for Rajni Flynn MD by Bronson Correa, hospitalist medical director, on 11/05/23 at 4:10 PM, EST. Scribe Plan - Not visible on output: Scribed for Rajni Flynn MD by Bronson Correa hospitalist medical director, on [ ] at [ ], EST. Coding Level of Care Code Global (94807) Diagnoses Acquired deformity of nail of finger L60.8
[2023-11-05 16:02] VITALS: BMI 20.2
== END 2023-11-05 16:19 | disposition home or self-care (01) ==
PROVIDERS: Visit Provider Orthopaedic Surgery
DX: L60.8 Other nail disorders (principal)
CPT/HCPCS: 99024

== ENCOUNTER → 2023-11-05 14:55 | Outpatient (BNVA) | payer OTHER, SELFPAY | PROVIDERS: Visit Provider Orthopaedic Surgery | DX: L60.8 Other nail disorders (principal) | CPT/HCPCS: 99212 ==

== ENCOUNTER 2023-12-04 15:42 | Outpatient (AMB) | payer SELFPAY ==
--- NOTE | 2023-12-04 15:58 | A.OFFVISCC_ITS ---
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
== END 2023-12-04 16:21 | disposition home or self-care (01) ==
PROVIDERS: Visit Provider Nurse Practitioner Psychiatric/Mental Health
DX: F11.21 Opioid dependence, in remission (principal)
CPT/HCPCS: 99213

== ENCOUNTER → 2023-12-04 15:42 | Outpatient (BNVA) | payer OTHER, SELFPAY | PROVIDERS: Visit Provider Nurse Practitioner Psychiatric/Mental Health | DX: F11.21 Opioid dependence, in remission (principal) | CPT/HCPCS: 99212 ==

== ENCOUNTER 2024-01-29 15:57 | Outpatient (AMB) | payer SELFPAY ==
--- NOTE | 2024-01-29 16:08 | A.OFFVISCC_ITS ---
Intake Visit Reasons: MAT Office Allergies Penicillins [PENICILLINS] Allergy (Intermediate, Verified 11/05/23 16:02) HIVES HPI HPI MAT Office: Details: Patient presents for follow up Currently prescribed Suboxone 4mg BID Taking btwn 2-3 films daily depends on the day and how he feels still has HSN --unsure if it will cover sublocade Review of Systems Const Reports as per HPI and Reports no additional complaints Physical Exam Const General: cooperative, healthy appearing, no acute distress and well groomed Assessment & Plan Assessment & Plan (1) Opioid use disorder, moderate, in sustained remission: Code(s): F11.21 - Opioid dependence, in remission Category: Medical Plan: * continue suboxone at 4mg TID * send for injection and await PA * follow up 2 months Medications: Changed From buprenorphine-naloxone 4-1 mg 1 film buccal BID 60 ea 0RF To buprenorphine-naloxone 4-1 mg 1 film buccal TID 90 ea 1RF Refilled buprenorphine ER 64 mg (0.18 mL) subcut Q28D 0.18 mL 5RF PFSH Medical History Opioid use disorder Social History Do you presently have visiting nurse or other home services: No Alcohol intake: never Patient Tobacco Use Status: Never used Tobacco 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
== END 2024-01-29 16:16 | disposition home or self-care (01) ==
PROVIDERS: Visit Provider Nurse Practitioner Psychiatric/Mental Health
DX: F11.21 Opioid dependence, in remission (principal)
CPT/HCPCS: 99213

== ENCOUNTER → 2024-01-29 15:57 | Outpatient (BNVA) | payer OTHER, SELFPAY | PROVIDERS: Visit Provider Nurse Practitioner Psychiatric/Mental Health | DX: F11.21 Opioid dependence, in remission (principal) | CPT/HCPCS: 99212 ==

== ENCOUNTER → 2024-04-02 14:23 | Outpatient (BNVA) | payer SELFPAY | PROVIDERS: Visit Provider Nurse Practitioner Psychiatric/Mental Health | DX: F11.21 Opioid dependence, in remission (principal); Z51.81 Encounter for therapeutic drug level monitoring | CPT/HCPCS: 99212 ==

== ENCOUNTER 2024-06-10 09:40 | Outpatient (AMB) | payer SELFPAY ==
--- NOTE | 2024-06-10 09:49 | A.OFFVIS_ITS ---
Vital Signs 06/10/24 09:50 Height 5 ft 11 in Weight 145 lb BMI 20.2 Intake Visit Reasons: OV-f/u LT IF excision of nail horn 10/24/23 AR Intake Note: Quentin is a 38 yo 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 who presents today post operatively s/p left index finger nail horn excision done 10/24/[address] Flynn. States he is doing well, states no nail has grown back but has a little scab that doesn't bother him, he has a little numbness on his index finger. Also mentioned he is having pain that is radiating to his elbow. He feels soreness in elbow, ROM is good and pain increases after a long day at work. No injury he can recall. Allergies Penicillins [PENICILLINS] Allergy (Intermediate, Verified 06/10/24 09:56) HIVES HPI HPI OV-f/u LT IF excision of nail horn 10/24/23 AR: Details: Quentin is a 39 year old 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 man. He has a Hx of a left index finger excision of nail horn, DOS: 10/24/23. He has a Hx of a left index finger revision amputation & excision of nail matrices, DOS: 05/30/23. This was a work related injury. He says he needs some paperwork filled out for in regards to this. In regards to his index finger, he says he is doing well, without any pain. He reports some mild numbness at the tip pf his finger, but says this is tolerable. He complains of pain in his elbow, which is worse at the end of the day. He denies any falls or known injury. 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 Review of Systems Const All systems reviewed & are unremarkable except as noted in HPI and below Physical Exam Vital Signs: BMI result Body Mass Index 20.2 Const General: no acute distress and alert Orientation/consciousness: patient oriented x3 Neuro General: patient oriented x3 Extrem Other: Evaluation of Left Upper Extremity: The patient is alert, oriented, and in no acute distress Neuro: Median, Ulnar, Radial nerves motor and sensory intact and sensation is normal to the tips of all digits Vascular: Cap refill brisk ROM: He can make a tight fist and extend all his digits No locking or catching Amputation site is well-healed No evidence of nail horn Completely non-tender to palpation Good pinch against his thumb without pain Mild Pain referred to the left lateral epicondyle with resisted wrist extension Mild Pain just distal to the lateral epicondyle, just distal to the extensor origin Psych Appearance: grossly normal Affect: normal affect Attitude: cooperative Assessment & Plan Assessment & Plan (1) Acquired deformity of nail of finger: Comment: Left IF Code(s): L60.8 - Other nail disorders Category: Medical (2) Left lateral epicondylitis: Code(s): M77.12 - Lateral epicondylitis, left elbow Category: Medical Plan Assessment & Plan: 1. Left index finger nail horn, S/P excision DOS: 10/24/23 2. Left index finger distal phalanx partial traumatic amputation at distal phalanx level, S/P revision amputation, I&D of open fracture, and excision of germinal and sterile nail matrices DOS: 05/10/23 This is a work related injury Doing well, no complaints He can participate in all daily activities, without restrictions If he needs a functional capacity exam, he needs to seek out a specialist as this clinic does not perform this assessment, he expressed understanding. He can follow up prn 3. Left lateral epicondylitis This is not a workers comp visit I educated him about this condition I discussed activity modifications he should avoid any heavy or repetitive lifting or pulling activities He should try to avoid any other activities which cause him pain I discussed stretching exercises and the safe use of NSAIDs for pain relief. He can follow up prn Scribed for Rajni Flynn MD by Bronson Correa, certified court/medical interpreter, on 06/10/24 at 10:25 AM, EST. Orders: Orders XR hand LT min 3V Today M79.642 - Pain in left hand Scribe Plan - Not visible on output: Scribed for Rajni Flynn MD by Bronson Correa, certified court/medical interpreter, on [ ] at [ ], EST. Coding Level of Care Code Est Pt Level 3 (46292) Diagnoses Acquired deformity of nail of finger L60.8 Left lateral epicondylitis M77.12
[2024-06-10 09:50] VITALS: BMI 20.2
--- OUTSIDE RECORDS SUMMARY | 2024-06-10 10:35 | XMS_ITS | Continuity of Care Document ---
Author Organization [facility] Address [address] [place] [address] Phone Care Team Providers Care Electric Train Driver Name Role Phone Asia Cooper Unavailable Unavailabl e Advance Directives Directive Yes / No Effective Date File Name No Information Encounters Encounter Description Practice Location Reason(s) For Visit Diagnoses Date Provider Providers Copied on Encounter [facility], [address] [facility] [place] [id number] tel:[phone] No Information Torri Betancourt. [address] [place], [place], [id number]. tel:[phone] Family History Family Member Type Diagnosis Age At Onset No Information Payers Payer name Insurance type Covered alliance party ID Authoriza tion(s) No Information Social History Type Description Quantity Date Captured Comments Sex Male Smoking Status No Information History Of Present Illness Encounter Date Complaint History Of Prese nt Illness No Information Functional Status Date Functional Assessmen t No Information Instructions Date Instruction Additional Infor mation No Information Assessments Type Assessment Date No Information Patient Care Teams Name Effective Dates (start - stop) Status Members No Information
--- OUTSIDE RECORDS SUMMARY | 2024-06-10 10:35 | XMS_ITS | Clinical Summary ---
Author Organization [facility] Address [address] [place] [address] Care Team Providers Care Skimmer Scoop Operator Name Role Phone Krista Guevara MD Primary Care Provider [phone] Social History Tobacco Use Types Packs/Day Years Used Date Smoking Tobacco: Never Assessed Sex and Gender Information Value Date Recorded Sex Assigned at Not on file Legal Sex Male 6:33 PM EST Gender Identity Not on file Sexual Orientation Not on file Plan of Treatment Health Maintenance Due Date Last Done Comments DTaP,Tdap,and Td Vaccines (1 - Tdap) 05/24/2006 Hepatitis B Vaccines (1 of 3 - 19+ 3-dose series) 05/24/2006 COVID-19 Vaccine (2023-2 5 season) 2023 Influenza Vaccine (#1) 2023 HIB Vaccines Aged Out No longer eligi ble based on patient's age to complete this topic HPV Vaccines Aged Out No longer eligi ble based on patient's age to complete this topic Hepatitis A Vaccines Aged Out No long er eligible based on patient's age to complete this topic IPV Vaccines Aged Out No longer eligi ble based on patient's age to complete this topic MMR Vaccines Aged Out No longer eligi ble based on patient's age to complete this topic Meningococcal ACWY Vaccine Aged Out N o longer eligible based on patient's age to complete this topic Meningococcal B Vaccine Aged Out No l onger eligible based on patient's age to complete this topic Pneumococcal Vaccine: Pediat rics (0 to 5 Years) and At-Risk Patients (6 to 64 Years) Aged Out No longer eligible b ased on patient's age to complete this topic RSV Immunization Patients Un myra 20 months Aged Out No longer eligible b ased on patient's age to complete this topic Varicella Vaccines Aged Out No longer eligible based on patient's age to complete this topic Care Teams Skimmer Scoop Operator Relationship Specialty Start Date End Date Krista Guevara MD [address], [address] [facility] D/B/A: [facility] YAMIL Scanlon PCP - General Internal Medicine 01/11/21
== END 2024-06-10 10:29 | disposition home or self-care (01) ==
LOC: HO.HOS 09:41
PROVIDERS: Visit Provider Orthopaedic Surgery
DX: L60.8 Other nail disorders (principal); M77.12 Lateral epicondylitis, left elbow
CPT/HCPCS: 99213

== ENCOUNTER 2024-06-10 09:44 | Outpatient (REF) | payer MEDICAID, SELFPAY ==
--- NOTE | ~2024-06-10 | XR_ITS ---
EXAMINATION: XR HAND, LEFT CLINICAL INFORMATION: M79.642 - Pain in left hand COMPARISON: 10/02/2023. TECHNIQUE: PA, lateral, and oblique views of the left hand. FINDINGS: There has been prior amputation of the second digit at the level of the proximal metaphysis, distal phalanx. Distal osteotomy site appears completely healed. Mild soft tissue prominence overlying the distal stump. No radiopaque foreign body. No acute bone abnormality. Otherwise there is no acute fracture, dislocation, or suspicious bone lesion of the left hand/wrist. There is normal alignment. Carpal bones appear intact. Joint spaces appear preserved. No additional soft tissue findings. XR/XR hand LT min 3V IMPRESSION: 1. Chronic appearing amputation of the second digit at the level of the proximal metaphysis, distal phalanx. Mild overlying soft tissue prominence of the distal stump. Osteotomy site appears completely healed. 2. Remainder of the exam is normal. Electronically signed by: Adarsh Butcher MD 06/10/2024 10:50 AM EDT
--- OUTSIDE RECORDS SUMMARY | 2024-06-11 10:58 | XMS_ITS | Clinical Summary ---
Author Organization [facility] Address [address] [place] [address] Care Team Providers Care Navy Diver Name Role Phone Krista Guevara MD Primary Care Provider Social History Tobacco Use Types Packs/Day Years [...] Vaccine (2023-2 5 season) 2023 Influenza Vaccine (Season Ended) 2024 HIB Vaccines Aged Out No longer eligi [...] age to complete this topic Care Teams Navy Diver Relationship Specialty Start Date End Date Krista Guevara MD [address], [address] [facility] D/B/A: [facility] YAMIL Scanlon PCP - General Internal Medicine 01/11/21
== END 2024-06-10 09:45 | disposition home or self-care (01) ==
LOC: HO.HOSX 09:44
PROVIDERS: Visit Provider Orthopaedic Surgery
DX: M79.642 Pain in left hand (principal); L60.8 Other nail disorders; M77.12 Lateral epicondylitis, left elbow
CPT/HCPCS: 73130; 99212

== ENCOUNTER → 2024-06-10 09:45 | Outpatient (BNV) | payer MEDICAID, SELFPAY | PROVIDERS: Visit Provider Radiology Diagnostic Radiology | DX: M79.642 Pain in left hand (principal) | CPT/HCPCS: 73130 ==

== ENCOUNTER 2024-06-17 12:58 | Outpatient (AMB) | payer SELFPAY ==
--- NOTE | 2024-06-17 12:59 | MHC.OFFVIS ---
Vital Signs 06/17/24 13:08 Height 5 ft 11 in Weight 152 lb BMI 21.2 Pulse 98 Pulse Source Pulse Oximeter Pulse Oximetry (%) 98 Oxygen Delivery Method Room Air Intake Visit Reasons: MAT Allergies Penicillins [PENICILLINS] Allergy (Intermediate, Verified 06/17/24 13:08) HIVES HPI HPI MAT: Details: He has OUD and has been on Suboxone before and got off very well with Sublocade. During COVID he felt cravings due to stress and started back on Sublocade. Now his insurance is not covering and he is working on getting insurance. 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 Review of Systems Const All systems reviewed & are unremarkable except as noted in HPI and below Physical Exam Vital Signs: Last Vital Signs Pulse 98 06/17/24 13:08 Pulse Ox 98 06/17/24 13:08 Oxygen Delivery Method Room Air 06/17/24 13:08 BMI result Body Mass Index 21.2 Const General: cooperative Results AMB 14 Panel Urine Drug Screen Urine Marijuana (THC) Negative Last Edit by Stephanie Hernandez CMA on 06/17/24 13:10 Urine Cocaine Negative Last Edit by Stephanie Hernandez CMA on 06/17/24 13:10 Urine Morphine Negative Last Edit by Stephanie Hernandez CMA on 06/17/24 13:10 Urine Methamphetamine Negative Last Edit by Stephanie Hernandez CMA on 06/17/24 13:10 Urine Amphetamine Negative Last Edit by Stephanie Hernandez CMA on 06/17/24 13:10 Urine Benzodiazepine Negative Last Edit by Stephanie Hernandez CMA on 06/17/24 13:10 Urine Barbiturates Negative Last Edit by Stephanie Hernandez CMA on 06/17/24 13:11 Urine Methadone Negative Last Edit by Stephanie Hernandez CMA on 06/17/24 13:10 Urine Buprenorphine Positive Last Edit by Stephanie Hernandez CMA on 06/17/24 13:10 Urine Tricyclic Antidepressant Negative Last Edit by Stephanie Hernandez CMA on 06/17/24 13:10 Urine MDMA Negative Last Edit by Stephanie Hernandez CMA on 06/17/24 13:10 Urine Oxycodone Negative Last Edit by Stephanie Hernandez CMA on 06/17/24 13:10 Urine Phencyclidine Negative Last Edit by Stephanie Hernandez CMA on 06/17/24 13:10 Urine Propoxyphene Negative Last Edit by Stephanie Hernandez CMA on 06/17/24 13:10 Results Reviewed Results Reviewed: Laboratory Last Values POC Urine Buprenorphine Positive 06/17/24 13:09 POC Urine Morphine Negative 06/17/24 13:09 POC Urine Oxycodone Negative 06/17/24 13:09 POC Urine Methadone Negative 06/17/24 13:09 POC Urine Propoxyphene Negative 06/17/24 13:09 POC Urine Barbiturates Negative 06/17/24 13:09 POC U Tricyclic Antidpr Negative 06/17/24 13:09 POC Urine PCP Negative 06/17/24 13:09 POC Ur Amphetamines Negative 06/17/24 13:09 POC Ur Methamphetamine Negative 06/17/24 13:09 POC Urine MDMA Negative 06/17/24 13:09 POC Ur Benzodiazepine Negative 06/17/24 13:09 POC Urine Cocaine Negative 06/17/24 13:09 POC Ur Marijuana (THC) Negative 06/17/24 13:09 Assessment & Plan Assessment & Plan (1) Opioid use disorder, moderate, in sustained remission: Comment: He is doing well on Suboxone 06/02 tid Code(s): F11.21 - Opioid dependence, in remission Category: Medical Plan: Continue until can get Sublocade. Did write for Sublocade See in two months unless Sublocade earlier Recheck HIV and Hepatitis C. Orders: Orders HIV Ab/Ag Today F11.21 - Opioid dependence, in remission AMB 14 Panel Urine Drug Screen Today Z51.81 - Encounter for therapeutic drug level monitoring Hepatitis C Antibody Today F11.21 - Opioid dependence, in remission Medications: New buprenorphine-naloxone 4-1 mg (Suboxone) place 1 strip/tab under (each) side of tongue 3 film buccal Q24H 30 days 90 ea 1RF buprenorphine ER (Sublocade) 300 mg (1.5 mL) subcut QWEEK 1.5 mL 5RF buprenorphine ER (Sublocade) 300 mg (1.5 mL) subcut QWEEK 1.5 mL 0RF buprenorphine ER (Sublocade) 300 mg (1.5 mL) subcut QWEEK 1.5 mL 0RF Coding Level of Care Code Est Pt Level 3 (87429) Diagnoses Opioid use disorder, moderate, in sustained remission F11.21
[2024-06-17 13:08] VITALS: PULSE 98; O2SAT 98; BMI 21.2
--- OUTSIDE RECORDS SUMMARY | 2024-06-17 15:23 | XMS_ITS | Continuity of Care Document ---
Author Organization [facility] Address [address] [place] [address] Phone Care Team Providers Care Casino Gaming Inspector Name Role Phone Asia Cooper Unavailable Unavailabl e Advance Directives Directive Yes / No Effective Date File Name No Information Encounters Encounter Description Practice Location Reason(s) For Visit Diagnoses Date Provider Providers Copied on Encounter [employer] [facility], [address] [facility] [place] [place], [id number] tel:[phone] No Information Torri Betancourt. [address] [place], [place], [id number]. tel:[phone] Family History Family Member Type Diagnosis Age At Onset No Information Payers Payer name Insurance type Covered constitution party ID Authoriza tion(s) No Information Social [...]
--- OUTSIDE RECORDS SUMMARY | 2024-06-17 15:23 | XMS_ITS | Clinical Summary ---
Author Organization [facility] Address [address] [place] [address] Care Team Providers Care Director Of Income Tax Name Role Phone Krista Guevara MD Primary Care Provider [phone] Social History Tobacco Use Types Packs/Day Years [...] age to complete this topic Care Teams Director Of Income Tax Relationship Specialty Start Date End Date Krista Guevara MD [address] [facility] [address], [address] [facility] D/B/A: [facility] YAMIL Scanlon PCP - General Internal Medicine 01/11/21
== END 2024-06-17 13:29 | disposition home or self-care (01) ==
LOC: HO.HCC 12:58
PROVIDERS: Visit Provider Internal Medicine
DX: Z51.81 Encounter for therapeutic drug level monitoring (principal); F11.21 Opioid dependence, in remission
CPT/HCPCS: 99213

== ENCOUNTER → 2024-06-17 12:58 | Outpatient (BNVA) | payer SELFPAY | PROVIDERS: Visit Provider Internal Medicine | DX: F11.21 Opioid dependence, in remission (principal); Z51.81 Encounter for therapeutic drug level monitoring | CPT/HCPCS: 80307; 99212 ==

== ENCOUNTER 2024-08-21 15:42 | Outpatient (AMB) | payer MEDICAID, SELFPAY ==
--- OUTSIDE RECORDS SUMMARY | 2024-08-21 15:44 | XMS_ITS | Clinical Summary ---
Author Organization [facility] Address [address] [place] [address] Care Team Providers Care Sand Buffer Name Role Phone Krista Guevara MD Primary Care Provider [phone] Social History Tobacco Use Types Packs/Day Years [...] age to complete this topic Care Teams Sand Buffer Relationship Specialty Start Date End Date Krista Guevara MD [address] [facility] [facility] [address] [facility] D/B/A: [facility] YAMIL Scanlon PCP - General Internal Medicine 01/11/21
--- NOTE | 2024-08-21 15:56 | MHC.OFFVIS ---
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 Medications: New buprenorphine-naloxone 4-1 mg (Suboxone) place 1 strip/tab under (each) side of tongue 1 film sublingual TID 90 ea 1RF 30 days Coding Level of Care Code Est Pt Level 3 (81392) Diagnoses Opioid use disorder, moderate, in sustained remission F11.21
[2024-08-21 16:01] VITALS: PULSE 59; O2SAT 98
== END 2024-08-21 16:42 | disposition home or self-care (01) ==
LOC: HO.HCC 15:42
PROVIDERS: Visit Provider Internal Medicine
DX: F11.21 Opioid dependence, in remission (principal)
CPT/HCPCS: 99213

== ENCOUNTER → 2024-08-21 15:42 | Outpatient (BNVA) | payer MEDICAID, SELFPAY | PROVIDERS: Visit Provider Internal Medicine | DX: F11.21 Opioid dependence, in remission (principal); Z79.899 Other long term (current) drug therapy | CPT/HCPCS: 99212 ==

== ENCOUNTER 2024-11-19 15:25 | Outpatient (AMB) | payer SELFPAY ==
--- NOTE | 2024-11-19 16:08 | MHC.AM.SUB ---
Vital Signs 11/19/24 16:09 BP 127/74 Blood Pressure Location Lt brachial Position Sitting Pulse 89 Pulse Source Pulse Oximeter Pulse Oximetry (%) 99 Oxygen Delivery Method Room Air Intake Visit Reasons: MAT Allergies Penicillins (PENICILLINS) Allergy (Intermediate, Verified 08/21/24 16:02) HIVES HPI Comments Details: A 39-year-old male presents for a follow-up visit r/t SCOTTY in sustained remission with buprenorphine-naloxone 4-1 mg TID. Denies use of opiates, alcohol, and other substances. Reports continuing to work full-time and is feeling stable with buprenorphine-naloxone. 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 The recovering RN discussed restarting Sublocade pending insurance approval. A follow up will be conducted with the insurance company, as Sublocade was denied in the past. Medications: Refilled buprenorphine-naloxone 4-1 mg 1 film buccal TID 90 ea 1RF Patient Instructions: - Continue with buprenorphine-naloxone as ordered. - Follow-up in 2 months or sooner if needed. - procurement intern will follow up pending insurance outcome for Sublocade. - Call with questions, concerns, or to report side effects/new onset of symptoms to [facility]. - The patient verbalized understanding and agreed with plan of care.
[2024-11-19 16:09] VITALS: BP 127/74; PULSE 89; O2SAT 99
--- OUTSIDE RECORDS SUMMARY | 2024-11-19 16:50 | XMS_ITS | Clinical Summary ---
Author Organization [facility] Address [address] [place] [address] Care Team Providers Care It Network Architect Name Role Phone Krista Guevraa MD Primary Care Provider [phone] Social History Tobacco Use Types Packs/Day Years [...] of 3 - 19+ 3-dose series) 05/24/2006 Depression Screening 03/04/2024 COVID-19 Vaccine ( - 2023-2 5 season) 2024 Influenza Vaccine (#1) 2024 HIB Vaccines Aged Out No longer [...] 5 Years) and At-Risk Patients (6 to 49 Years) Aged Out No longer eligible b ased on patient's age to complete this topic RSV Immunization Patients Un myra 20 months Aged Out No longer eligible b ased on patient's age to complete this topic Varicella Vaccines Aged Out No longer eligible based on patient's age to complete this topic Care Teams It Network Architect Relationship Specialty Start Date End Date Krista Guevara MD [address] [facility] , [address] [facility] D/B/A: Ghislaine Patelatianitha In Internal Medicine YAMIL Scanlon PCP - General Internal Medicine 01/11/21
== END 2024-11-19 16:57 | disposition home or self-care (01) ==
PROVIDERS: Visit Provider Clinical Nurse Specialist Psychiatric/Mental Health
DX: F11.21 Opioid dependence, in remission (principal)
CPT/HCPCS: 99213

== ENCOUNTER → 2024-11-19 15:25 | Outpatient (BNVA) | payer SELFPAY | PROVIDERS: Visit Provider Clinical Nurse Specialist Psychiatric/Mental Health | DX: F11.21 Opioid dependence, in remission (principal) | CPT/HCPCS: 99212 ==

== ENCOUNTER 2025-02-10 15:37 | Outpatient (AMB) | payer SELFPAY ==
--- NOTE | 2025-02-10 15:47 | MHC.AM.SUB ---
Vital Signs 02/10/25 15:48 Height 5 ft 11 in Weight 142 lb BMI 19.8 BP 110/60 Pulse 82 Pulse Oximetry (%) 98 Intake Visit Reasons: MAT Allergies Penicillins (PENICILLINS) Allergy (Intermediate, Verified 02/10/25 15:48) HIVES Medication List - Last Reconciled 02/10/25 by DENIS Garcia acetaminophen (Tylenol Extra Strength) 1,000 mg (2 x 500 mg) PO Q6H PRN buprenorphine ER (Sublocade) 300 mg (1.5 mL) subcut .monthly 2 doses buprenorphine-naloxone 4-1 mg 1 film buccal TID ibuprofen 600 mg PO Q6H PRN HPI Comments Details: A 39-year-old male presents for a follow-up visit r/t SCOTTY in sustained remission with buprenorphine-naloxone 4-1 mg TID. The patient is requesting LESTER-Sublocade, in the past was denied by insurance. Denies use of opiates, alcohol, and other substances. Reports continuing to work full-time and focused on spending quality time with family over the holidays. Review of Systems Const All systems reviewed & are unremarkable except as noted in HPI and below Physical Exam Vital Signs: Last Vital Signs Pulse 82 02/10/25 15:48 BP 110/60 02/10/25 15:48 Pulse Ox 98 02/10/25 15:48 BMI result Body Mass Index 19.8 Const General: cooperative Results AMB 14 Panel Urine Drug Screen Urine Marijuana (THC) Negative Last Edit by Tee Kiran CMA on 02/10/25 15:53 Urine Cocaine Negative Last Edit by Tee Kiran CMA on 02/10/25 15:53 Urine Morphine Negative Last Edit by Tee Kiran CMA on 02/10/25 15:53 Urine Methamphetamine Negative Last Edit by Tee Kiran CMA on 02/10/25 15:53 Urine Amphetamine Negative Last Edit by Tee Kiran CMA on 02/10/25 15:53 Urine Benzodiazepine Negative Last Edit by Tee Kiran CMA on 02/10/25 15:53 Urine Barbiturates Negative Last Edit by Tee Kiran CMA on 02/10/25 15:53 Urine Methadone Negative Last Edit by Tee Kiran CMA on 02/10/25 15:53 Urine Buprenorphine Positive Last Edit by Tee Kiran CMA on 02/10/25 15:53 Urine Tricyclic Antidepressant Negative Last Edit by Tee Kiran CMA on 02/10/25 15:53 Urine MDMA Negative Last Edit by Tee Kiran CMA on 02/10/25 15:53 Urine Oxycodone Negative Last Edit by Tee Kiran CMA on 02/10/25 15:53 Urine Phencyclidine Negative Last Edit by Tee Kiran CMA on 02/10/25 15:53 Urine Propoxyphene Negative Last Edit by Tee Kiran CMA on 02/10/25 15:53 Results Reviewed Results Reviewed: Laboratory Last Values POC Urine Buprenorphine Positive 02/10/25 15:49 POC Urine Morphine Negative 02/10/25 15:49 POC Urine Oxycodone Negative 02/10/25 15:49 POC Urine Methadone Negative 02/10/25 15:49 POC Urine Propoxyphene Negative 02/10/25 15:49 POC Urine Barbiturates Negative 02/10/25 15:49 POC U Tricyclic Antidpr Negative 02/10/25 15:49 POC Urine PCP Negative 02/10/25 15:49 POC Ur Amphetamines Negative 02/10/25 15:49 POC Ur Methamphetamine Negative 02/10/25 15:49 POC Urine MDMA Negative 02/10/25 15:49 POC Ur Benzodiazepine Negative 02/10/25 15:49 POC Urine Cocaine Negative 02/10/25 15:49 POC Ur Marijuana (THC) Negative 02/10/25 15:49 PFSH Medical History Opioid use disorder Social History Do you presently have visiting nurse or other home services: No Alcohol intake: never Patient Tobacco Use Status: Never used Tobacco 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 Sublocade will be ordered pending insurance approval. Orders: Orders AMB 14 Panel Urine Drug Screen Today Z51.81 - Encounter for therapeutic drug level monitoring Medications: Refilled buprenorphine-naloxone 4-1 mg 1 film buccal TID 90 ea 1RF Patient Instructions: - Continue with buprenorphine-naloxone as prescribed. - Sublocade will be ordered pending insurance approval. - Follow-up in 3 months or sooner if needed. - The patient verbalized understanding and agreed with plan of care.
[2025-02-10 15:48] VITALS: BP 110/60; PULSE 82; O2SAT 98; BMI 19.8
--- OUTSIDE RECORDS SUMMARY | 2025-02-11 00:18 | XMS_ITS | Clinical Summary ---
Author Organization [facility] Address [address] [place] [address] Care Team Providers Care Draw Fire Operator Name Role Phone Krista Guevara MD Primary Care Provider [phone] Social History Tobacco Use Types Packs/Day Years [...] of 3 - 19+ 3-dose series) 05/24/2006 HPV Vaccines (1 - 3-dose SCD M series) 05/24/2014 Depression Screening 03/04/2024 COVID-19 Vaccine (1 - 2024-2 6 season) 2024 Influenza Vaccine (#1) 2024 RSV Immunization Adult Patie nts (1 - 1-dose 75+ series) 05/24/2062 HIB Vaccines Aged Out No longer eligi [...] age to complete this topic Care Teams Draw Fire Operator Relationship Specialty Start Date End Date Krista Guevara MD [address] [place] [address] , [address] [facility] Physician Associ D/B/A: Ghislaine Khan In Internal Medicine YAMIL Scanlon PCP - General Internal Medicine 01/11/21
== END 2025-02-10 15:58 | disposition home or self-care (01) ==
LOC: HO.HCC 15:37
PROVIDERS: Visit Provider Clinical Nurse Specialist Psychiatric/Mental Health
DX: F11.21 Opioid dependence, in remission (principal); Z51.81 Encounter for therapeutic drug level monitoring
CPT/HCPCS: 99213

== ENCOUNTER → 2025-02-10 15:37 | Outpatient (BNVA) | payer SELFPAY | PROVIDERS: Visit Provider Clinical Nurse Specialist Psychiatric/Mental Health | DX: F11.21 Opioid dependence, in remission (principal); Z51.81 Encounter for therapeutic drug level monitoring | CPT/HCPCS: 80307; 99212 ==